=== PATIENT | male | born 1975 | race Caucasian/White ===

== ENCOUNTER → 2023-05-18 | Outpatient (CLI) | payer OTHER, SELFPAY ==
--- NOTE | 2023-05-18 11:03 | MRI_ITS ---
STUDY: MRI BRAIN WITH AND WITHOUT CONTRAST REASON FOR EXAM: Male, 47 years old. SUDDEN HEARING LOSS L EAR TECHNIQUE: Standardized multiplanar fat and water weighted pulse sequences were obtained. IV 17ml Clariscan was administered for the contrast portion of the examination. COMPARISON: None. FINDINGS: Normal size of the ventricles and extra-axial spaces for the patient''s age. There are a limited number of small white matter hyperintensities, distributed throughout the deep white matter tracts of the cerebral hemispheres, consistent with mild chronic white matter ischemic changes versus migraines. There is no evidence for recent intracranial ischemia or other cause of cytotoxic edema on diffusion weighted imaging (DWI). Normal T2* images of the brain without demonstrated susceptibility artifact. There is no demonstrated hemosiderin stain. Normal bilateral basal ganglia. Normal thalami. There is no extra-axial fluid accumulation. Normal flow voids within the major intracranial circulation suggesting patency by spin echo criteria. Normal venous enhancement. There is no enhancing intra-axial or extra-axial abnormality. There is increased CSF within the sella and flattening of the pituitary gland consistent with an empty sellar syndrome . Normal infundibular stalk, hypothalamus, and optic chiasm. Normal tectal plate and pineal gland. Normal midbrain, juan diego and medulla. Normal cerebellum. Normal basal cisterns. Normal bilateral temporal bones. Normal bilateral internal auditory canals. No demonstrated orbital abnormality, within the constraints of a routine brain study. Normal visualized paranasal sinuses. Normal calvarium and skull base. Normal visualized soft tissue structures. Normal visualized upper cervical spine. MRI/Brain W/WO Contrast IMPRESSION: No acute intracranial abnormality. No MR evidence of vestibular schwannoma. No mass or hemorrhage. Mild white matter chronic ischemic change versus migraines. Empty sella. Electronically Signed: Irwin Delgado MD at 14:53 EST ,
== END | disposition home or self-care (01) ==
PROVIDERS: PCP Family Medicine; Referring Provider Otolaryngology; Visit Provider Otolaryngology
DX: H91.22 Sudden idiopathic hearing loss, left ear (principal)
CPT/HCPCS: 70553; A9575

== ENCOUNTER 2023-10-03 12:21 | Emergency (ER) | payer OTHER, SELFPAY ==
[2023-10-03 12:22] VITALS: BP 149/89; PULSE 79; RESP 18; TEMP 36.6; O2SAT 100; BMI 27.6
--- NOTE | 2023-10-03 13:27 | US_ITS ---
STUDY: ABDOMINAL ULTRASOUND - RIGHT UPPER QUADRANT REASON FOR VISIT: Male, 48 years old . The right upper quadrant pain. TECHNIQUE: Ultrasound evaluation of the right upper quadrant was performed with real-time and static hayes-scale imaging. TECHNICAL QUALITY: Adequate. COMPARISON: None. FINDINGS: Liver: The liver measures 15.5 cm. There is normal echogenicity of the liver. The bile ducts are within normal limits. There is hepatic color flow. The direction of portal flow is hepatopetal. There is a 1 cm x 1 cm x 0.7 cm hypoechoic nodule in the right lobe of the liver. Increased peripheral vascularity. Correlation with a CT scan is recommended. Gallbladder: Normal distended gallbladder. The gallbladder wall measures 2.6 mm. There is a negative sonographic Castaneda''s sign. There is a small amount of pericholecystic fluid. There are multiple echogenic structures within the gallbladder, consistent with multiple gallstones. Common Bile Duct (C.B.D.): The common bile duct measures 2.4 mm. Pancreas: Normal size of the head, body and tail of the pancreas. There is increased echogenicity of the pancreas. There is no demonstrated pancreatic mass or cyst. Right Kidney: Normal size of the right kidney. The right kidney measures 10.7 cm x 6.5 cm x 6.3 cm. Normal renal cortex. The right cortex measures 1.5 cm. There is no demonstrated renal mass or cyst. There is no right hydronephrosis. US/Gallbladder IMPRESSION: Multiple gallstones. 1 cm x 1 cm x 0.7 cm hypoechoic nodule in the right lobe of the liver with peripheral vascularity. Correlation with the CT scan of the abdomen recommended. Electronically Signed: Tin Ruvalcaba MD at 15:02 EDT ,
--- NOTE | 2023-10-03 13:29 | ED.VIS.GI ---
HPI <Dr. Lalit Silva DO - Last Filed: 10/03/23 15:53> HPI - GI History of Present Illness Chief Complaint: Abd Pain Informant: patient and spouse/S.O. Narrative Narrative: 48-year-old male presenting to the emergency room with abdominal pain and vomiting. Patient states that last evening he was eating pepperoni pizza. He states that around 0200 hrs. he awoke with abdominal pain and vomiting. He states he had a similar episode about a month ago and saw his primary care doctor was placed on Carafate. He states he has been doing well since then. He states that this morning symptoms have not been abating so he came to the hospital. The patient notes that he did have a slight amount of pain starting to radiate towards his right flank but wonders if that was from retching. No definite fever. He notes a normal bowel movement this morning. He denies any known significant medical problems. PFSH <Dr. Lalit Silva DO - Last Filed: 10/03/23 15:53> [facility] Home Medications ?Medication ?Instructions ?Recorded ?Last Taken ?Type citalopram 20 mg tablet 20 mg PO DAILY 10/03/23 Unknown History fexofenadine 60 mg-pseudoephedrine 1 tab PO Q12H PRN PRN allergy 10/03/23 Unknown History ER 120 mg tablet,ext.release,12 hr symptoms (Kamala-D 12 Hour) hydrocortisone 2.5 % topical cream 1 applic [place] BID HEMORRHOIDS 10/03/23 Unknown History with perineal applicator (Procto-Med HC) pantoprazole 20 mg tablet,delayed 20 mg PO BID #28 tabs 10/03/23 Unknown Rx release (Protonix) sucralfate 1 gram tablet 1 g PO TID 10/03/23 Unknown History Allergy/AdvReac Type Severity Reaction Status Date / Time Penicillins AdvReac Intermediate Vomiting Verified 10/03/23 12:22 Social History Smoking Status: Smoker, status unknown ROS <Dr. Lalit Silva DO - Last Filed: 10/03/23 15:53> ROS ED Constitutional Constitutional ED: Denies chills, fever(s) or weight loss Eyes Eyes: Denies change in vision or diplopia ENT ENT ED: Denies ear pain, rhinorrhea or sore throat Cardiovascular Cardiovascular: Denies chest pain, orthopnea, palpitations or racing heartbeat Respiratory/Chest Respiratory/Chest: Denies cough, dyspnea or orthopnea Gastrointestinal Gastrointestinal: Reports abdominal pain, nausea and vomiting; Denies diarrhea Genitourinary Genitourinary ED: Denies dysuria, hematuria or urinary frequency Musculoskeletal Musculoskeletal: Denies arthralgias, back pain or myalgias Integumentary Denies abscess or rash Neurologic Neurologic: Denies headache(s) or weakness Psychiatric Psychiatric: Denies anxiety, depression, suicidal ideation or suicidal thoughts Endocrine Endocrinology: Denies polydipsia, polyphagia or polyuria Allergic/Immunologic Allergic/Immunologic ED: Denies mouth swelling, tongue swelling or urticaria EXAM <Dr. Lalit Silva, DO - Last Filed: 10/03/23 15:53> Physical Exam Const Vital Signs: 10/03/23 12:22 10/03/23 16:00 10/03/23 16:56 Temperature 98 F 98.5 F Temperature Source Temporal Oral Pulse Rate 79 68 94 Respiratory Rate 18 16 18 Blood Pressure 149/89 H 145/70 H 139/79 H Blood Pressure Mean 109 95 99 Pulse Ox 100 98 98 Oxygen Delivery Method Room Air Room Air Room Air 10/03/23 18:00 Temperature 97 F L Temperature Source Pulse Rate 72 Respiratory Rate 15 Blood Pressure 124/69 H Blood Pressure Mean 87 Pulse Ox 98 Oxygen Delivery Method Positive well nourished and well developed General Appearance ED: well developed and NAD HEENT Reports normocephalic, head/scalp atraumatic and moist mucous membranes Eyes PERRL and EOMs intact bilaterally Neck no lymphadenopathy, supple and no JVD Resp normal respiratory effort and clear to auscultation bilaterally Cardio regular rate, regular rhythm and no murmurs GI GI Narrative: Patient is tender to palpation in the right upper quadrant and slightly in the epigastrium Auscultation: normoactive bowel sounds Palpation: soft and tender epigastric and RUQ Back/Spine no CVA tenderness and normal ROM Extremity normal to inspection General Extremety ED: Negative for edema General Extremity: Negative for edema Neuro oriented x3 and CN's II-XII intact bilaterally Sensorium / Orientation: alert Motor Exam: strength 5/5 throughout Psych mental status grossly normal Mood & Affect: Negative for depressed or tearful Skin no rashes or lesions noted and no wounds <Dr. Maxx Loredo, DO - Last Filed: 10/03/23 22:37> Physical Exam Const Vital Signs: 10/03/23 12:22 10/03/23 16:00 10/03/23 16:56 Temperature 98 F 98.5 F Temperature Source Temporal Oral Pulse Rate 79 68 94 Respiratory Rate 18 16 18 Blood Pressure 149/89 H 145/70 H 139/79 H Blood Pressure Mean 109 95 99 Pulse Ox 100 98 98 Oxygen Delivery Method Room Air Room Air Room Air 10/03/23 18:00 Temperature 97 F L Temperature Source Pulse Rate 72 Respiratory Rate 15 Blood Pressure 124/69 H Blood Pressure Mean 87 Pulse Ox 98 Oxygen Delivery Method MDM <Dr. Lalit Silva, DO - Last Filed: 10/03/23 15:53> MDM MDM Narrative Medical decision making narrative: Differential diagnosis includes but not limited to biliary colic choledocholithiasis pancreatitis gastritis duodenitis colitis esophagitis perforated viscus I performed a bedside ultrasound which demonstrates cholelithiasis. I am not able to measure the CBD at the bedside. He is tender over the gallbladder. White count elevated 14.7 with 87.9 neutrophils. BMP within normal limits except for glucose of 114. Normal LFTs and lipase. Patient had emesis prior to pain medication. Since receiving pain and nausea medication he states the right upper quadrant pain is gone now he has some mild tenderness in his epigastrium. Formal gallbladder ultrasound was obtained which demonstrates cholelithiasis. Gallbladder wall is measured at 2.6 mm. Common bile duct is 2.4 mm. They recorded negative sonographic Castaneda's (this is after pain medication). There was noted by radiology to be a small amount of pericholecystic fluid. Please see radiology read for further details. Patient received IV fluids and a dose of Protonix. Case was discussed with on-call surgeon Dr. Bianchi. We are going to obtain a CT abdomen pelvis based on the findings of the ultrasound. Patient also received a GI cocktail. If he is doing better plan will be to discharge him home have him take his Carafate 4 times a day as well as Protonix twice daily. He will then follow-up with surgery in the office. If there is any concerns we will speak with surgery again. At this time the care of the patient will be checked out to the oncoming physician for final disposition. History & Record Review Discussion w/independent historian: Patient and Significant other Lab Data Attestation: I reviewed the patient's lab results. Labs: Laboratory Results - last 24 hr 10/03/23 14:00 WBC 14.7 H RBC 4.55 L Hgb 14.8 Hct 42.3 MCV 93.0 MCH 32.5 H MCHC 35.0 RDW Std Deviation 43.6 RDW Coeff of Trevon 12.7 Plt Count 302 MPV 9.1 Immature Gran % (Auto) 0.400 Neut % (Auto) 87.9 H Lymph % (Auto) 6.3 L [place] % (Auto) 5.2 Eos % (Auto) 0.0 Baso % (Auto) 0.2 Absolute Neuts (auto) 13.0 H Absolute Lymphs (auto) 0.93 Nucleated RBC % 0 Sodium 140 Potassium 4.0 Chloride 105 Carbon Dioxide 28.0 Anion Gap 7 BUN 9 Creatinine 0.84 Estim Creat Clear Calc 113.46 Est GFR (MDRD) Af Amer 126 Est GFR (MDRD) Non-Af 104 BUN/Creatinine Ratio 10.7 Glucose 114 H Calcium 8.8 Total Bilirubin 0.90 Direct Bilirubin 0.16 AST 20 ALT 25 Alkaline Phosphatase 49 Total Protein 6.8 Albumin 3.8 Globulin 3.0 Lipase 33 Radiography Diagnostic Testing: Clinical Impression(s) from Imaging Studies Gallbladder Ultrasound 10/03/23 13:27 IMPRESSION: Multiple gallstones. 1 cm x 1 cm x 0.7 cm hypoechoic nodule in the right lobe of the liver with peripheral vascularity. Correlation with the CT scan of the abdomen recommended. Electronically Signed: Tin Ruvalcaba MD at 15:02 EDT , Abdomen/Pelvis CT 10/03/23 15:42 IMPRESSION: Normal enhanced CT of the abdomen and pelvis. No CT evidence of hepatic lesion as suggested on ultrasound. Electronically Signed: Marco A Kimbrough MD at 16:53 EDT , Management Discussion w/another healthcare provider: Deputy Director Of Finance (Dr. Bianchi) <Dr. Maxx Loredo, DO - Last Filed: 10/03/23 22:37> [facility] Lab Data Labs: Laboratory Results - last 24 hr 10/03/23 14:00 WBC 14.7 H RBC 4.55 L Hgb 14.8 Hct 42.3 MCV 93.0 MCH 32.5 H MCHC 35.0 RDW Std Deviation 43.6 RDW Coeff of Trevon 12.7 Plt Count 302 MPV 9.1 Immature Gran % (Auto) 0.400 Neut % (Auto) 87.9 H Lymph % (Auto) 6.3 L [place] % (Auto) 5.2 Eos % (Auto) 0.0 Baso % (Auto) 0.2 Absolute Neuts (auto) 13.0 H Absolute Lymphs (auto) 0.93 Nucleated RBC % 0 Sodium 140 Potassium 4.0 Chloride 105 Carbon Dioxide 28.0 Anion Gap 7 BUN 9 Creatinine 0.84 Estim Creat Clear Calc 113.46 Est GFR (MDRD) Af Amer 126 Est GFR (MDRD) Non-Af 104 BUN/Creatinine Ratio 10.7 Glucose 114 H Calcium 8.8 Total Bilirubin 0.90 Direct Bilirubin 0.16 AST 20 ALT 25 Alkaline Phosphatase 49 Total Protein 6.8 Albumin 3.8 Globulin 3.0 Lipase 33 Radiography Diagnostic Testing: Clinical Impression(s) from Imaging Studies Gallbladder Ultrasound 10/03/23 13:27 IMPRESSION: Multiple gallstones. 1 cm x 1 cm x 0.7 cm hypoechoic nodule in the right lobe of the liver with peripheral vascularity. Correlation with the CT scan of the abdomen recommended. Electronically Signed: Tin Ruvalcaba MD at 15:02 EDT , Abdomen/Pelvis CT 10/03/23 15:42 IMPRESSION: Normal enhanced CT of the abdomen and pelvis. No CT evidence of hepatic lesion as suggested on ultrasound. Electronically Signed: Marco A Kimbrough MD at 16:53 EDT , Treatment and Re-Evaluation :: Patient was turned over to me by Dr. Silva @1600 Brief history: 48-year-old male presents with epigastric abdominal pain Physical exam: Epigastric TTP, no guarding, no peritoneal signs. No jaundice. Symmetric pulses. No pulsatile abdominal masses, auscultated bruits. Labs and images reviewed (if obtained): CBC with leukocytosis suggestive of systemic inflammation, no anemia, no thrombocytopenia noted CMP without evidence of acute kidney injury, significant electrolyte abnormality, anion gap, no evidence hepatobiliary pathology. Lipase is wnl indicating no pancreatic inflammation. Right upper quadrant ultrasound shows some gallbladder inflammation, multiple gallstones, hypoechoic area in the liver CT scan showed no such liver abnormality, no evidence of surgical pathology in the abdomen Repeat abdominal exam was benign. Gave IV Pepcid for additional relief. Discussed the case with the general surgeon on-call Dr. Bianchi who reviewed the patient's labs, images. She recommended no acute surgical invention. She further recommended close outpatient follow-up and to begin a PPI. PPI was prescribed by Dr. Silva. Patient is appropriate discharge. Strict return precautions were discussed. MDM/plan: Discharge with close general surgery follow-up Discharge Plan Triage Chief Complaint: Abd Pain ED Provider: Maxx Loredo Dx/Rx/DC Orders Clinical Impression: Abdominal pain, acute, Cholelithiasis, GERD (gastroesophageal reflux disease) Instructions: Gallstones Dc, ED GERD (Adult) Prescriptions: New pantoprazole [Protonix] 20 mg tablet,delayed release (DR/EC) 20 mg PO BID Qty: 28 0RF No Action sucralfate 1 gram tablet 1 g PO TID citalopram 20 mg tablet 20 mg PO DAILY fexofenadine-pseudoephedrine [Kamala-D 12 Hour] 60-120 mg tablet extended release 12 hr 1 tab PO Q12H PRN PRN (Reason: allergy symptoms) hydrocortisone [Procto-Med HC] 2.5 % cream with perineal applicator 1 applic [place] BID Primary Care Provider: Nicolás Flowers Referrals: Kesha Bianchi MD [Med Staff - Active Staff] - As soon as possible (for general surgical evaluation) Nicolás Flowers MD [Primary Care Provider] - Print Language: Turkish Disposition Disposition: Home, Self Care Discharge Date/Time: 10/03/23 18:01
[2023-10-03] MEDS: 0.9% Normal Saline (1000mL) 1,000 ML 999 ML IV (14:01)
[2023-10-03] MEDS: HYDROmorphone 1 MG/ML Syringe IV (14:01)
[2023-10-03] MEDS: Ondansetron 4 MG/2 ML Vial IV (14:01)
[2023-10-03 14:17] LABS: Absolute Lymphocyte Count 0.93 X10^3/uL (0.83-4.51); Basophil# 0.03 X10^3/uL; Basophil% 0.2 % (0-1); Hematocrit 42.3 % (40-54); Hemoglobin 14.8 g/dL (13.0-16.5); Lymphocyte # 0.93 X10^3/ul (0.83-4.51); Lymphocyte % 6.3 % (19-41); Mean Corpuscular Hgb 32.5 pg (27.0-32.0); Mean Platelet Vol. 9.1 fl (6.2-12.0); Monocyte# 0.77 X10^3/uL; Monocyte% 5.2 % (0-10); NRBC Flagged by Analyzer 0 % (0-5); Neutrophil # 12.95 X10^3/uL (2.7-7.7); Neutrophil % 87.9 % (47-70); Platelet Count 302 K/mm3 (150-450); RBC Distribution Width CV 12.7 % (11.6-14.6); RBC Distribution Width SD 43.6 fl (35.1-43.9); Red Blood Count 4.55 M/mm3 (4.6-6.2); White Blood Count 14.7 K/mm3 (4.4-11.0)
[2023-10-03 14:32] LABS: AST(SGOT) 20 U/L (15-37); Alanine Aminotransfer ALT/SGPT 25 U/L (16-61); Albumin, Serum 3.8 g/dL (3.2-5.0); Alkaline Phosphatase 49 U/L (45-117); Anion Gap 7 (5-15); BUN 9 mg/dL (7-18); BUN/Creat Ratio 10.7 RATIO (10-20); Bilirubin, Direct 0.16 mg/dL (0.00-0.30); Calcium,Total 8.8 mg/dL (8.5-10.1); Chloride 105 mmol/L (98-107); Creatinine, Serum 0.84 mg/dL (0.70-1.30); EST Glomerular Filtration Rate 104 mL/min (>60); Est Glom Filt Rate - Afr Amer 126 mL/min (>60); Estimated Creatinine Clearance 113.46 ml/min; Glucose 114 mg/dL (74-106); Lipase 33 U/L (13-75); Protein, Total 6.8 g/dL (6.4-8.2); Sodium Level 140 mmol/L (136-145)
[2023-10-03] MEDS: 0.9% Normal Saline (1000mL) 1,000 ML 125 ML IV (15:20)
--- NOTE | 2023-10-03 15:42 | CT_ITS ---
STUDY: CT ABDOMEN AND PELVIS WITH CONTRAST REASON FOR EXAM: Male, 48 years old. abdominal pain. abnormal liver lesion RADIATION DOSAGE (If Supplied By Facility): CTDIvol = ( 12.28 ) mGy, DLP = ( 835.06 ) mGycm TECHNIQUE: Transaxial images were obtained from the dome of the diaphragm to the symphysis pubis without oral contrast. IV 100mL Isovue-300 was administered. Sagittal and coronal images were reconstructed. Individualized dose optimization techniques were used for this CT. COMPARISON: Ultrasound earlier today FINDINGS: The visualized lung bases are unremarkable. The visualized portions of the heart are within normal limits. Normal liver. The described lesion in the right lobe of the liver is not visualized. Normal gallbladder and extrahepatic biliary system. Normal spleen. Normal pancreas. Normal bilateral adrenal glands. Normal right kidney. Normal left kidney. There is a small hiatal hernia. Normal small intestine. Normal colon. The appendix is visualized and appears normal. Normal abdominal aorta. Normal inferior vena cava. Normal retroperitoneum. Normal urinary bladder. Normal abdominal wall. Normal osseous structures. CT/Abdomen/Pelvis W IV Cont ONLY IMPRESSION: Normal enhanced CT of the abdomen and pelvis. No CT evidence of hepatic lesion as suggested on ultrasound. Electronically Signed: Marco A Kimbrough MD at 16:53 EDT ,
[2023-10-03] MEDS: Pantoprazole Sodium 40 MG in 0.9% Normal Saline (100mL MB+) 100 ML 330 MG IV (15:44)
[2023-10-03] MEDS: Mag /Aluminum/Simeth WCH UDC 30 ML ORAL.SUSP PO (15:58)
[2023-10-03] MEDS: Lidocaine 2% Viscous15 ML UDC 15 ML PO (15:58)
[2023-10-03 16:00] VITALS: BP 145/70; PULSE 68; RESP 16; O2SAT 98
[2023-10-03 16:56] VITALS: BP 139/79; PULSE 94; RESP 18; TEMP 36.9; O2SAT 98
[2023-10-03] MEDS: Famotidine 200 MG/20 ML MDV 20 MG in 0.9% Normal Saline (Pres. free 8 ML 300 MG IV (17:57)
[2023-10-03 18:00] VITALS: BP 124/69; PULSE 72; RESP 15; TEMP 36.1; O2SAT 98
== END 2023-10-03 18:01 | disposition home or self-care (01) ==
PROVIDERS: Emergency Medicine; Emergency Provider Emergency Medicine; PCP Family Medicine; Visit Provider Emergency Medicine
DX: R10.9 Unspecified abdominal pain (principal); K21.9 Gastro-esophageal reflux disease without esophagitis; F17.200 Nicotine dependence, unspecified, uncomplicated; K80.20 Calculus of gallbladder without cholecystitis without obstruction
CPT/HCPCS: 74177; 76705; 80048; 80076; 83690; 85025; 99283; J7030; Q9967; A4216; J2405; J3490

== ENCOUNTER 2023-10-05 05:54 | Inpatient (IN) | payer OTHER, SELFPAY ==
[2023-10-05] VITALS (9 sets, daily range): BP systolic 128–159; BP diastolic 74–91; PULSE 60–117; RESP 16–19; TEMP 36.4–37.2; O2SAT 93–98; BMI 27.6; BMI 27.1
--- NOTE | 2023-10-05 06:13 | ED.VIS.GI ---
HPI HPI - GI History of Present Illness Chief Complaint: Abd Pain Informant: patient and spouse/S.O. Narrative Narrative: Patient presenting with worsening abdominal pain. He was seen here 2 days ago for the same thing, had a CT and ultrasound told he had gallstones and is supposed to follow-up with surgery as an outpatient. The pain has been progressively worsening for the past 2 days and has not gone away although it has been colicky and sometimes does improve on its own. It also seems to be on the left side now in addition to the right upper quadrant where it was before, it radiates down the left side and up the left side at times, sometimes mean in his chest, when he tries to burp the pain is worse. He has had nausea but no vomiting. No fevers or chills. No jaundice or confusion. No pain in his back or shoulders with this. He has eaten very little in the past 2 days and has had no bowel movements since. No issues urinating. He had an episode about a month ago, his doctor put him on Carafate, he was started on pantoprazole a couple days ago, it did not seem to help and then they read that abdominal pain is a possible side effect so he stopped taking it. [facility] Home Medications ?Medication ?Instructions ?Recorded ?Last Taken ?Type citalopram 20 mg tablet 20 mg PO DAILY 10/03/23 Unknown History fexofenadine 60 mg-pseudoephedrine 1 tab PO Q12H PRN PRN allergy 10/03/23 Unknown History ER 120 mg tablet,ext.release,12 hr symptoms (Kamala-D 12 Hour) hydrocortisone 2.5 % topical cream 1 applic [place] BID HEMORRHOIDS 10/03/23 Unknown History with perineal applicator (Procto-Med ) pantoprazole 20 mg tablet,delayed 20 mg PO BID #28 tabs 10/03/23 Unknown Rx release (Protonix) sucralfate 1 gram tablet 1 g PO Q6H 10/03/23 Unknown History Allergy/AdvReac Type Severity Reaction Status Date / Time Penicillins AdvReac Intermediate Vomiting Verified 10/05/23 05:55 Surgical History no surgical history no surgical history Social History Smoking Status: Smoker, status unknown ROS ROS ED Constitutional Constitutional ED: Denies chills or fever(s) Eyes Eyes: Denies change in vision or diplopia ENT ENT ED: Denies rhinorrhea or sore throat Cardiovascular Cardiovascular: Denies chest pain or palpitations Respiratory/Chest Respiratory/Chest: Denies cough or dyspnea Gastrointestinal Gastrointestinal: Reports abdominal pain and nausea; Denies diarrhea or vomiting Genitourinary Genitourinary ED: Denies dysuria or hematuria Musculoskeletal Musculoskeletal: Denies back pain or neck pain Integumentary Denies abscess or rash Neurologic Neurologic: Denies headache(s), paresthesias or weakness Psychiatric Psychiatric: Denies suicidal thoughts EXAM Physical Exam Const Vital Signs: 10/05/23 05:54 10/05/23 07:54 10/05/23 07:57 Temperature 97.5 F L 97.8 F Temperature Source Temporal Pulse Rate 94 60 61 Respiratory Rate 16 17 17 Blood Pressure 159/91 H 129/74 H 129/74 H Blood Pressure Mean 113 92 92 Pulse Ox 98 93 94 Oxygen Delivery Method Room Air Room Air Positive well nourished and well developed General Appearance ED: well developed and NAD HEENT Reports moist mucous membranes normocephalic and atraumatic Eyes PERRL and EOMs intact bilaterally Neck full ROM and supple Resp normal respiratory effort and clear to auscultation bilaterally Cardio regular rate, regular rhythm and no murmurs GI non-distended GI Narrative: Very tender right upper quadrant positive Castaneda. Less tender throughout the left abdomen. Auscultation: normoactive bowel sounds Palpation: soft Back/Spine no CVA tenderness General Back: other FROM Extremity normal to inspection General Extremety ED: Negative for edema, pulses abnormal or tenderness General Extremity: Negative for edema or pulses abnormal Neuro oriented x3, CN's II-XII intact bilaterally and no sensory deficits noted Sensorium / Orientation: awake and alert Motor Exam: strength 5/5 throughout Psych thought process normal Skin no rashes or lesions noted and no wounds MDM MDM MDM Narrative Medical decision making narrative: My concern is that this patient is developing acute cholecystitis. He presents during retrimmer and ultrasound is not available at this time, so I am repeating his labs and giving him treatment to get his symptoms under control. I reviewed his ED visit from 2 days ago, he had a CT scan that was unremarkable and an ultrasound that showed some pericholecystic fluid and cholelithiasis. I reviewed his labs; with worsening leukocytosis and development of hyperbilirubinemia, in context I think this is consistent with acute cholecystitis, plus possible choledocholithiasis. Antibiotics to be given and discussed with Dr. Jarrod victor for further inpatient management. He advised first repeating right upper quadrant ultrasound to assess status of possible choledocholithiasis to help determine next management steps. This was obtained. Checked out to AM ED physician at shift change for results and arrangement for admission. History & Record Review Additional record(s) reviewed:: Prior ED visit Lab Data Attestation: I reviewed the patient's lab results. Labs: Laboratory Results - last 24 hr 10/05/23 06:02 WBC 16.6 H RBC 4.54 L Hgb 14.5 Hct 41.9 MCV 92.3 MCH 31.9 MCHC 34.6 RDW Std Deviation 42.2 RDW Coeff of Trevon 12.5 Plt Count 291 MPV 9.1 Immature Gran % (Auto) 0.400 Neut % (Auto) 81.2 H Lymph % (Auto) 6.9 L [place] % (Auto) 10.9 H Eos % (Auto) 0.4 Baso % (Auto) 0.2 Absolute Neuts (auto) 13.5 H Absolute Lymphs (auto) 1.14 Nucleated RBC % 0 Diff Path Review May foll Sodium 135 L Potassium 3.3 L Chloride 101 Carbon Dioxide 24.0 Anion Gap 10 BUN 8 Creatinine 0.86 Estim Creat Clear Calc 110.82 Est GFR (MDRD) Af Amer 124 Est GFR (MDRD) Non-Af 102 BUN/Creatinine Ratio 9.4 L Glucose 118 H Calcium 9.1 Total Bilirubin 2.50 H AST 36 ALT 40 Alkaline Phosphatase 57 Total Protein 7.0 Albumin 3.7 Globulin 3.3 Albumin/Globulin Ratio 1.1 Lipase 31 Management Discussion w/another healthcare provider: Hospitalist and Supervisor [employer] (valente Garay) Discharge Plan Dx/Rx/DC Orders Clinical Impression: Acute calculous cholecystitis, Hyperbilirubinemia Disposition Disposition: [facility]
[2023-10-05] MEDS: Ketorolac 30 MG/ML Syringe IV (06:23)
[2023-10-05 06:24] LABS: Absolute Lymphocyte Count 1.14 X10^3/uL (0.83-4.51); Absolute Neutrophil Count 13.5 X10^3/uL (2.0-7.7); Basophil# 0.04 X10^3/uL; Basophil% 0.2 % (0-1); Eosinophil# 0.07 X10^3/uL; Eosinophils% 0.4 % (0-5); Hematocrit 41.9 % (40-54); Hemoglobin 14.5 g/dL (13.0-16.5); Lymphocyte # 1.14 X10^3/ul (0.83-4.51); Lymphocyte % 6.9 % (19-41); Mean Corp Hgb Conc 34.6 g/dL (32-36); Mean Corpuscular Hgb 31.9 pg (27.0-32.0); Mean Corpuscular Volume 92.3 fL (80-94); Mean Platelet Vol. 9.1 fl (6.2-12.0); Monocyte% 10.9 % (0-10); NRBC Flagged by Analyzer 0 % (0-5); Neutrophil # 13.46 X10^3/uL (2.7-7.7); Neutrophil % 81.2 % (47-70); POSITIVE DIFFERENTIAL YES; Platelet Count 291 K/mm3 (150-450); RBC Distribution Width CV 12.5 % (11.6-14.6); RBC Distribution Width SD 42.2 fl (35.1-43.9); Red Blood Count 4.54 M/mm3 (4.6-6.2); White Blood Count 16.6 K/mm3 (4.4-11.0)
[2023-10-05] MEDS: 0.9% Normal Saline (1000mL) 1,000 ML 125 ML IV ×3 (06:24→22:28)
[2023-10-05] MEDS: Ondansetron 4 MG/2 ML Vial IV ×2 (06:24→13:56)
[2023-10-05] MEDS: Morphine 4 MG/ML Syringe IV ×2 (06:24→13:56)
[2023-10-05 06:36] LABS: Differential Indicated SCAN CRITERIA MET
[2023-10-05 06:41] LABS: ALB/GLOB Ratio 1.1 RATIO (0.9-2.4); AST(SGOT) 36 U/L (15-37); Alanine Aminotransfer ALT/SGPT 40 U/L (16-61); Albumin, Serum 3.7 g/dL (3.2-5.0); Alkaline Phosphatase 57 U/L (45-117); Anion Gap 10 (5-15); BUN 8 mg/dL (7-18); BUN/Creat Ratio 9.4 RATIO (10-20); Calcium,Total 9.1 mg/dL (8.5-10.1); Chloride 101 mmol/L (98-107); Creatinine, Serum 0.86 mg/dL (0.70-1.30); EST Glomerular Filtration Rate 102 mL/min (>60); Est Glom Filt Rate - Afr Amer 124 mL/min (>60); Estimated Creatinine Clearance 110.82 ml/min; Globulin 3.3 g/dL (2.2-4.2); Glucose 118 mg/dL (74-106); Lipase 31 U/L (13-75); Potassium 3.3 mmol/L (3.5-5.1); Sodium Level 135 mmol/L (136-145)
[2023-10-05] MEDS: Cefepime HCl 2 GM in 0.9% Normal Saline (100mL MB+) 100 ML IV ×2 (07:16→22:29)
--- NOTE | 2023-10-05 07:58 | US_ITS ---
STUDY: ABDOMINAL ULTRASOUND - RIGHT UPPER QUADRANT REASON FOR VISIT: Male, 48 years old inc pain, elev bili, eval for choledocholithiasis TECHNIQUE: Ultrasound evaluation of the right upper quadrant was performed with real-time and static hayes-scale imaging. TECHNICAL QUALITY: Adequate. COMPARISON: Comparison is made with prior study dated October 03, 2023. FINDINGS: Liver: The liver measures 16.9 cm. There is normal echogenicity of the liver. The bile ducts are within normal limits. There is hepatic color flow. The direction of portal flow is hepatopetal. There is a 1.1 cm x 1.2 cm x 0.7 cm hypoechoic nodule with the central increased echotexture with increased vascularity in the right lobe. There is also evidence of a 1.5 cm x 1.4 cm x 1.2 cm hyperechoic nodule in the posterior aspect of the right lobe of the liver. This may represent a hemangioma. Gallbladder: Normal distended gallbladder. The gallbladder wall is thickened and measures 4.5 mm. There is a positive sonographic Castaneda''s sign. There is no pericholecystic fluid. There are multiple echogenic structures within the gallbladder, consistent with multiple gallstones. Sludge is seen within the gallbladder lumen. Proximal 4 mm x 3 mm stone in the cystic duct. Common Bile Duct (C.B.D.): The common bile duct measures 2.6 mm. Pancreas: Normal size of the head, body and tail of the pancreas. There is increased echogenicity of the pancreas. There is no demonstrated pancreatic mass or cyst. Right Kidney: Normal size of the right kidney. The right kidney measures 11.5 cm x 6.4 cm x 5.9 cm. Normal renal cortex. The right cortex measures 1.3 cm. There is no demonstrated renal mass or cyst. There is no right hydronephrosis. US/Gallbladder IMPRESSION: Multiple gallstones. Thickened gallbladder wall. Questionable calculus in the cystic duct. Findings suggestive of a hemangioma in the posterior right lobe of the liver. Persistent 1.1 cm x 1.2 cm x 0.7 cm hypoechoic nodule with central increased echotexture with vascularity in the right. Electronically Signed: Tin Ruvalcaba MD at 9:15 EDT ,
[2023-10-05 12:58] LABS: Pathologist Review Reviewed
--- NOTE | 2023-10-05 14:12 | HP.PCM_ITS ---
[facility] - General General Date of Admission: 10/05/23 Chief Complaint: abdominal pain [facility] Narrative CHELLE TORRES, is a 48 M who presents to [facility] ER with a complaint of intractable abdominal pain. He shares that he woke at approximately 2 AM on 10/03/2023 with severe pain of his upper abdomen and that favored his right side. This was associated with some nausea and vomiting. When it did not go away he presented to the emergency department where he underwent laboratory testing and both right upper quadrant ultrasound as well as CT imaging. He was ultimately dismissed on a regimen of twice daily Protonix as well as Carafate and direction to follow-up with surgery as an outpatient. He shares that upon his dismissal his pain persisted all the following day and became more diffuse and its affect causing severe stomach cramping. With this persistence he decided to represent for evaluation this morning approximately 5 AM. Repeat laboratory testing showed a further increase in his previously identified leukocytosis. I was contacted and no suspicion for cholecystitis and requested repeat ultrasound imaging. This was performed and showed a thickened gallbladder wall at 4.5 mm as well as a possible stone in the cystic duct. Notably the common bile duct measured 2.6 mm to the advanced analytics associate. Beyond the above episodes of abdominal discomfort, Mr. Torres and his share of the prior isolated episode of abdominal pain approximately 1 month ago. He states that this episode was self-limited after a single episode of vomiting and he awoke and the next morning without further signs of discomfort. He did present to his PCP, Dr. Flowers, [facility] who prescribed him Carafate and Pepcid. Patient has no significant past medical history and no prior surgeries. [facility] Medical History (Updated 10/05/23 @ 14:47 by Patti Yates) Former smoker Migraines Home Medications ?Medication ?Instructions ?Recorded ?Last Taken ?Type citalopram 20 mg tablet 20 mg PO DAILY 10/03/23 Unknown History fexofenadine 60 mg-pseudoephedrine 1 tab PO Q12H PRN allergy symptoms 10/03/23 Unknown History ER 120 mg tablet,ext.release,12 hr (Kamala-D 12 Hour) hydrocortisone 2.5 % topical cream 1 applic [place] BID HEMORRHOIDS 10/03/23 Unknown History with perineal applicator (Procto-Med ) pantoprazole 20 mg tablet,delayed 20 mg PO BID #28 tabs 10/03/23 10/04/23 Rx release (Protonix) sucralfate 1 gram tablet 1 g PO Q6H 10/03/23 Unknown History famotidine 20 mg tablet (Acid 20 mg PO DAILY 10/05/23 Unknown History Controller) ketotifen fumarate 0.025 % (0.035 1 drp EACH EYE BID PRN allergy 10/05/23 Unknown History %) eye drops (Alaway) symptoms loratadine 10 mg tablet (Allergy 10 mg PO DAILY 10/05/23 Unknown History Relief (loratadine)) sumatriptan succinate 50 mg tablet 50 mg PO DAILY PRN migraine 10/05/23 Unknown History headache Allergy/AdvReac Type Severity Reaction Status Date / Time Penicillins AdvReac Intermediate Vomiting Verified 10/05/23 05:55 Surgical History no surgical history Social History Smoking Status: Former smoker ROS Constitutional Constitutional: Denies change in weight Gastrointestinal Gastrointestinal: Reports abdominal pain, constipation, nausea and vomiting Vital Signs Vital Signs Vital Signs: 10/05/23 05:54 10/05/23 07:54 10/05/23 07:57 Temperature 97.5 F L 97.8 F Temperature Source Temporal Pulse Rate 94 60 61 Respiratory Rate 16 17 17 Blood Pressure 159/91 H 129/74 H 129/74 H Blood Pressure Mean 113 92 92 Blood Pressure Source Blood Pressure Position Blood Pressure Location Pulse Ox 98 93 94 Oxygen Delivery Method Room Air Room Air 10/05/23 09:00 10/05/23 09:44 10/05/23 11:00 Temperature 98 F Temperature Source Temporal Pulse Rate 68 88 83 Respiratory Rate 18 19 H 19 H Blood Pressure 149/89 H 144/78 H 148/82 H Blood Pressure Mean 109 100 104 Blood Pressure Source Monitor Blood Pressure Position Supine Blood Pressure Location Right Arm Pulse Ox 97 96 95 Oxygen Delivery Method Room Air Room Air Room Air 10/05/23 13:00 Temperature Temperature Source Pulse Rate 117 H Respiratory Rate 18 Blood Pressure 143/78 H Blood Pressure Mean 99 Blood Pressure Source Blood Pressure Position Blood Pressure Location Pulse Ox 96 Oxygen Delivery Method Room Air Weight Weight: 192 lb 10.944 oz Body Mass Index (BMI) 27.6 Physical Exam Const alert, oriented x3, no apparent distress and well nourished General Appearance: cooperative GI GI Narrative: No scars, hirsute, no visible herniations. Soft, tender to palpation across epigastrium and right upper quadrant. Technically negative Castaneda sign. Results Lab / Micro Data 10/05/23 06:02 10/05/23 06:02 Labs: Laboratory Results - last 24 hr 10/05/23 06:02: WBC 16.6 H, RBC 4.54 L, Hgb 14.5, Hct 41.9, MCV 92.3, MCH 31.9, MCHC 34.6, RDW Std Deviation 42.2, RDW Coeff of Trevon 12.5, Plt Count 291, MPV 9.1, Immature Gran % (Auto) 0.400, Neut % (Auto) 81.2 H, Lymph % (Auto) 6.9 L, M quiana % (Auto) 10.9 H, Eos % (Auto) 0.4, Baso % (Auto) 0.2, Absolute Neuts (auto) 13.5 H, Absolute Lymphs (auto) 1.14, Nucleated RBC % 0, Diff Path Review Reviewed, Sodium 135 L, Potassium 3.3 L, Chloride 101, Carbon Dioxide 24.0, Anion Gap 10, BUN 8, Creatinine 0.86, Estim Creat Clear Calc 110.82, Est GFR (MDRD) Af Amer 124, Est GFR (MDRD) Non-Af 102, BUN/Creatinine Ratio 9.4 L, G lucose 118 H, Calcium 9.1, Total Bilirubin 2.50 H, AST 36, ALT 40, Alkaline Phosphatase 57, Total Protein 7.0, Albumin 3.7, Globulin 3.3, Albumin/Globulin Ratio 1.1, Lipase 31 Imaging Radiology Impression Gallbladder Ultrasound 10/05/23 07:58 IMPRESSION: Multiple gallstones. Thickened gallbladder wall. Questionable calculus in the cystic duct. Findings suggestive of a hemangioma in the posterior right lobe of the liver. Persistent 1.1 cm x 1.2 cm x 0.7 cm hypoechoic nodule with central increased echotexture with vascularity in the right. Electronically Signed: Tin Ruvalcaba MD at 9:15 EDT , Assessment & Plan Assessment/Plan (1) Acute calculous cholecystitis: PLAN: Patient is a 48-year-old male with approximately 48-hour history of acute onset upper abdominal pain with associated nausea and vomiting. Patient with mild leukocytosis 2 days ago has increased on today's labs. Further, today's labs demonstrate some hyperbilirubinemia discussed later in this note. Both patient's history and exam are consistent with a diagnosis of acute calculus cholecystitis. Based on radiology's interpretation the ultrasound is showing possible stone in the cystic duct a obstruction of the outflow of the gallbladder may be to blame for this condition. With patient's presentation and otherwise minimal past medical history of find him as an acceptable candidate for an operation of recommended proceeding with laparoscopic cholecystectomy with intraoperative cholangiography. I described the procedure in detail as well as postprocedure recovery. I specifically addressed the use of intraoperative cholangiography as a means of confirming the anatomy and confirming patency of the outflow tracts to the small bowel. Patient and his were given opportunity ask questions and all were answered to their satisfaction. Plan to admit to inpatient status and proceed with surgery in the a.m. Patient has been dosed with cefepime by emergency medicine given his reported allergies to penicillins. Will plan to continue this as an inpatient. Patient should be held n.p.o. past midnight. A.m. labs are anticipated. Will look to have consents obtained for laparoscopic cholecystectomy with intraoperative cholangiography. Kameron Garay MD General Surgery Endocrine Surgery Pager: [facility] [address] [place] [address], [address] [place] [address] Office: [phone] (2) Hyperbilirubinemia: PLAN: Hyperbilirubinemia noted with patient's labs, however, his LFTs and alkaline phosphatase are not elevated. Therefore this may be simply an acute phase reactant. Will plan to repeat a CMP in the a.m. as well as further investigate with cholangiography up tomorrow surgery. Charges/Coding Visit Charges Inpatient E&M: 63543 Init Hosp L2
--- NOTE | 2023-10-05 14:13 | NURSING ---
MED SURG BORTZ CHOLECYSTITIS
[2023-10-05] MEDS: Acetaminophen 500 MG Tablet PO ×2 (17:40→20:30)
--- NOTE | 2023-10-05 17:49 | EKG12_ITS ---
Test Reason : PRE OP Blood Pressure : / mmHG Vent. Rate : 092 BPM Atrial Rate : 092 BPM P-R Int : 146 ms QRS Dur : 096 ms QT Int : 348 ms P-R-T Axes : 044 -26 026 degrees QTc Int : 430 ms Normal sinus rhythm Incomplete right bundle branch block Nonspecific T wave abnormality Abnormal ECG No previous ECGs available Confirmed by OTTO RAMIREZ, TRENTON ([id number]), material expeditor MASOUD SHEA ([id number]) on 10/08/2023 1:14:15 PM Referred By: MAU Confirmed By:TRENTON MENJIVAR MD
[2023-10-06] VITALS (12 sets, daily range): BP systolic 111–156; BP diastolic 56–87; PULSE 82–109; RESP 14–20; TEMP 2.7–37.8; O2SAT 93–100
[2023-10-06] MEDS: Acetaminophen 500 MG Tablet PO ×2 (03:46→21:52)
[2023-10-06] MEDS: 0.9% Normal Saline (1000mL) 1,000 ML 125 ML IV ×3 (06:18→21:39)
[2023-10-06 06:26] LABS: Absolute Lymphocyte Count 1.25 X10^3/uL (0.83-4.51); Absolute Neutrophil Count 13.4 X10^3/uL (2.0-7.7); Basophil# 0.06 X10^3/uL; Basophil% 0.4 % (0-1); Eosinophils% 1.2 % (0-5); Hematocrit 38.3 % (40-54); Hemoglobin 13.3 g/dL (13.0-16.5); Lymphocyte # 1.25 X10^3/ul (0.83-4.51); Lymphocyte % 7.6 % (19-41); Mean Corp Hgb Conc 34.7 g/dL (32-36); Mean Corpuscular Hgb 32.7 pg (27.0-32.0); Mean Corpuscular Volume 94.1 fL (80-94); Mean Platelet Vol. 9.3 fl (6.2-12.0); Monocyte# 1.47 X10^3/uL; Monocyte% 8.9 % (0-10); NRBC Flagged by Analyzer 0 % (0-5); Neutrophil # 13.41 X10^3/uL (2.7-7.7); Neutrophil % 81.4 % (47-70); Platelet Count 264 K/mm3 (150-450); RBC Distribution Width CV 12.8 % (11.6-14.6); RBC Distribution Width SD 44.4 fl (35.1-43.9); Red Blood Count 4.07 M/mm3 (4.6-6.2); White Blood Count 16.5 K/mm3 (4.4-11.0)
[2023-10-06 07:01] LABS: ALB/GLOB Ratio 0.8 RATIO (0.9-2.4); AST(SGOT) 39 U/L (15-37); Alanine Aminotransfer ALT/SGPT 43 U/L (16-61); Alkaline Phosphatase 54 U/L (45-117); Anion Gap 7 (5-15); BUN 8 mg/dL (7-18); Calcium,Total 8.3 mg/dL (8.5-10.1); Chloride 109 mmol/L (98-107); EST Glomerular Filtration Rate 111 mL/min (>60); Est Glom Filt Rate - Afr Amer 134 mL/min (>60); Estimated Creatinine Clearance 119.13 ml/min; Globulin 3.6 g/dL (2.2-4.2); Glucose 107 mg/dL (74-106); Potassium 3.2 mmol/L (3.5-5.1); Protein, Total 6.6 g/dL (6.4-8.2); Sodium Level 140 mmol/L (136-145)
--- NOTE | 2023-10-06 07:33 | PCM.PRE.AN2 ---
ASA Classification* ASA Classification ASA Classification: 2 and E Assessment & Plan Anesthesia* Anesthesia Assessment Anesthesia Assessment: Discussed sedation and/or anesthesia options, risks, benefits, and alternatives with patient/parents/legal guardian/POA. Questions invited. The patient/parents/legal guardian/POA seems to understand and agrees to proceed with anesthesia plan. Reviewed the physical assessment, medical history, allergy history and patient home medications list prior to surgery/procedure/anesthetic and documented any changes. Performed airway and anesthesia risk assessments. Anesthesia Type Anesthesia Type: General (see written pre anesthesia record for full assessment) Anesthesia Focused Assessment* Temperature: 99.4 F Pulse Rate: 99 Blood Pressure: 154/87 Respiratory Rate: 16 Pulse Ox: 96 Airway Assessment Mouth opens: >3 cm Mallampati Score: II Focused Labs Anesthesia Preop lab: CBC WBC 16.5 K/mm3 (4.4-11.0) H 10/06/23 06:18 RBC 4.07 M/mm3 (4.6-6.2) L 10/06/23 06:18 Hgb 13.3 g/dL (13.0-16.5) 10/06/23 06:18 Hct 38.3 % (40-54) L 10/06/23 06:18 Plt Count 264 K/mm3 (150-450) 10/06/23 06:18 CHEMISTRY Potassium 3.2 mmol/L (3.5-5.1) L 10/06/23 06:18 Sodium 140 mmol/L (136-145) 10/06/23 06:18 BUN 8 mg/dL (7-18) 10/06/23 06:18 Creatinine 0.80 mg/dL (0.70-1.30) 10/06/23 06:18 Glucose 107 mg/dL (74-106) H 10/06/23 06:18 COAG Pre-Assessment Diagnosis/Proposed Procedure Planned Operative Procedure(s): lap castillo Anesthesia History 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 When Was Last Pacemaker Check QUESTION #4 FULL TEXT: You/Your Family Experience fever (hyperthermia) with Anesthesia Last Oral Intake Last Oral intake: Last Oral Intake NPO since 00:00 10/05/23 20:03 Meds taken in AM with sips of water? Meds patient instructed to take am of surgery PONV PONV - it telecom technician: PONV - it telecom technician Female HX of Motion Sickness HX of N/V After Surgery Non-Smoker Duration of Surgery greater than 60 minutes Number of Risk Factors PONV Score Height & Weight Height & Weight: Anesthesia: Height & Weight Height 5 ft 10 in 10/05/23 20:03 Weight: 86.001 kg 10/05/23 20:03 Body Mass Index (BMI) 27.1 10/05/23 20:03 Respiratory Assessment Respiratory Assessment - it telecom technician: Respiratory Tract Infection Hx - it telecom technician Hx Respiratory Tract Infection No 10/05/23 15:01 STOP Sleep Apnea STOP Sleep Apnea - it telecom technician: STOP Sleep Apnea - it telecom technician Hx Hypertension No 10/05/23 14:40 Hx Sleep Apnea No 10/05/23 14:40 CPAP BIPAP Do you snore loudly (louder No 10/05/23 14:40 than talking or can be heard Do you often feel tired/ No 10/05/23 14:40 fatigued/ sleepy during daytime? Has anyone observed you stop No 10/05/23 14:40 breathing during sleep? STOP Results Negative 10/05/23 14:40 QUESTION #5 FULL TEXT : Do you snore loudly (louder than talking or can be heard through closed doors)? 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 Specify any problems Hx of Preganancy in last 3 N/A 10/05/23 14:40 Months Nurse Filling Out Transfusion FSTEINER 10/05/23 14:40 & Questions: Date: 10/05/23 10/05/23 14:40 Time: 14:42 10/05/23 14:40 Patient unable to answer at this time (ie. confused, unrespo /Reproduction History /Reproductive History - it telecom technician: /Reproductive Hx- it telecom technician Hx Now No 10/05/23 15:01 Gestational Age (in weeks): EDC: Hx Hx Para Hx Section SAB No 10/05/23 15:01 Active Medications Active Medications: Current Medications Generic Name Dose Route Start Last Admin Trade Name Freq PRN Reason Stop Dose Admin Acetaminophen 500 mg 10/05/23 14:05 10/06/23 03:46 Acetaminophen 500 Mg Tablet PO 500 mg Q6H PRN PRN Administration Pain Score 1-10 Hydromorphone HCl 0.5 mg 10/05/23 14:05 Hydromorphone 0.5 Mg/0.5 Ml Syringe IV Q4H PRN PRN Pain Score 6-10 Sodium Chloride 1,000 mls @ 125 mls/hr 10/05/23 14:05 10/06/23 06:18 IV 125 mls/hr .Q8H SHELLI Administration Pantoprazole Sodium 40 mg/ 110 mls @ 330 mls/hr 10/06/23 10:00 Sodium Chloride IV Q24 SHELLI Cefepime HCl 2 gm/ Sodium 100 mls @ 200 mls/hr 10/05/23 22:00 10/05/23 22:59 Chloride IV Infused Q12 SHELLI Infusion Sodium Chloride 250 mls @ 15 mls/hr 10/05/23 14:45 IV .[id number] PRN Additional IVPB Infusion Sodium Chloride 250 mls @ 15 mls/hr 10/05/23 14:45 IV .[id number] PRN Saline Flush Ondansetron HCl 4 mg 10/05/23 14:05 Ondansetron 4 Mg/2 Ml Vial IV Q6H PRN PRN NAUSEA/VOMITING Sodium Chloride 10 - 40 ml 10/05/23 14:45 0.9% Saline Lock 10 Ml Syringe IV UD PRN SALINE FLUSH PFSH Medical History Former smoker Migraines Home Medications ?Medication ?Instructions ?Recorded ?Last Taken ?Type citalopram 20 mg tablet 20 mg PO DAILY 10/03/23 Unknown History fexofenadine 60 mg-pseudoephedrine 1 tab PO Q12H PRN allergy symptoms 10/03/23 Unknown History ER 120 mg tablet,ext.release,12 hr (Kamala-D 12 Hour) hydrocortisone 2.5 % topical cream 1 applic [place] BID HEMORRHOIDS 10/03/23 Unknown History with perineal applicator (Procto-Med HC) pantoprazole 20 mg tablet,delayed 20 mg PO BID #28 tabs 10/03/23 10/04/23 Rx release (Protonix) sucralfate 1 gram tablet 1 g PO Q6H 10/03/23 Unknown History famotidine 20 mg tablet (Acid 20 mg PO DAILY 10/05/23 Unknown History Controller) ketotifen fumarate 0.025 % (0.035 1 drp EACH EYE BID PRN allergy 10/05/23 Unknown History %) eye drops (Alaway) symptoms loratadine 10 mg tablet (Allergy 10 mg PO DAILY 10/05/23 Unknown History Relief (loratadine)) sumatriptan succinate 50 mg tablet 50 mg PO DAILY PRN migraine 10/05/23 Unknown History headache Allergy/AdvReac Type Severity Reaction Status Date / Time Penicillins AdvReac Intermediate Vomiting Verified 10/05/23 05:55 Surgical History no surgical history Social History Smoking Status: Former smoker Review of Systems (Anesthesia) ROS Narrative System reviewed and no additional complaints, except as documented.
--- NOTE | 2023-10-06 08:00 | GALL_PTH ---
PATIENT: CHELLE TORRES LOC: MS3 U#:[id number] AGE/SX: 48/M ROOM: [facility] RE10/05/[address]: Dr. Kameron Garay MD : 1975 BED: 1 DIS: 10/07/2023 SPEC #: [id number] RECD: 10/08/23 07:20 STATUS: H[employer]TER [employer]ES #: [id number] OLINDA: 10/06/23 08:[address]: Kameron Garay DEPT: SURGICAL PATHOLOGY RECD BY: Peg York ENTERED: 10/08/23 08:48 SP TYPE: ELANA LARA DR: Dr. Nicolás Flowers MD Tissues: Gallbladder, NOS Procedures: Surgery Specimen Level III HEADER OPERATION: Laparoscopic cholecystectomy with aborted intraoperative PRE-OP DIAGNOSIS: Acute calculous cholecystitis, hyperbilirubinemia TISSUE SUBMITTED: Gallbladder MICROSCOPIC DIAGNOSIS Gallbladder, cholecystectomy: Acute and chronic hemorrhagic cholecystitis and cholelithiasis. SJ/mr 10/09/2023 MICROSCOPIC DESCRIPTION Slides are reviewed. GROSS DESCRIPTION pgaReceived is one container labeled with the patient's name and designated gallbladder. The specimen consists of a gallbladder measuring 10.5 cm in length and up to 3.5 cm in diameter. The external surface is pink-matamoros, smooth and glistening for the most part. Focally it is granular, hemorrhagic and contains cautery artifact. The gallbladder contains multiple blood clots and multiple light yellow mulberry stones measuring in aggregate 1.8 x 1.5 x 0.5 cm and 0.3 to 0.5 cm in greatest dimension. The mucosa is congested and hemorrhagic. Section of the gallbladder wall also reveal congested and hemorrhagic cut surfaces. The gallbladder wall measures up to 0.5 cm in thickness. Home Theater Expert sections from the gallbladder and the cystic duct are submitted in one cassette. / DEVONTE: 10/08/2023 TC:2 CPT: 48532
[2023-10-06] MEDS: Cefepime HCl 2 GM in 0.9% Normal Saline (100mL MB+) 100 ML IV ×2 (08:22→21:38)
--- NOTE | 2023-10-06 08:30 | RAD_ITS ---
INDICATION: LAP BUBBA EXAMINATION/TECHNIQUE: Two cine runs intraoperative views are presented for evaluation. Total Fluoroscopic Time: 39.1 seconds . Radiation dosage index: 12.7 mGy. COMPARISON: Gallbladder ultrasound of 10/05/2023 FINDINGS: Extravasated contrast is seen in the right upper quadrant. The common bile duct is not opacified. RAD/Cholangiogram/ O R,Initial IMPRESSION: Extravasated contrast in the right upper quadrant. The common bile duct is not opacified. Electronically Signed: Collin Ortiz MD at 12:29 EDT ,
[2023-10-06] MEDS: Pantoprazole Sodium 40 MG in 0.9% Normal Saline (100mL MB+) 100 ML 330 MG IV (10:00)
[2023-10-06] MEDS: Bupiv/Epi 0.25% 30 ML Vial (10:43)
--- NOTE | 2023-10-06 10:45 | PCM.OPRPT ---
Report of Operation Date of Procedure: 10/06/23 Pre-Operative Diagnosis: Acute cholecystitis Post-Operative Diagnosis: Severe acute cholecystitis with hydrops Surgery/Procedure Performed:: Laparoscopic cholecystectomy with aborted intraoperative cholangiogram Surgeon: Kameron Garay servomechanism assembler: Christina Troy Type of Anesthesia: General/Supplemental Anesthesiologist: Sorin Greco Specimen's removed: Gallbladder Estimated Blood Loss (mL): 50 Description of Procedure: After proper identification in the preoperative holding area the patient was brought to the operating room where he was positioned supine on the operating room table. Preoperatively SCDs were connected and antibiotics were redosed. General anesthesia was then induced. Patient's abdomen was prepped and draped in usual sterile fashion. A formal timeout was conducted to confirm both patient and the procedure. Procedure was begun with a supraumbilical incision which was extended deeply down to the level of the fascia. The fascia was elevated and incised, as well as the peritoneum. A finger sweep was performed to ensure there were no underlying adhesions and a 12 mm balloon trocar was inserted. Pneumoperitoneum was established at 15 mmHg. Three additional trocars (all 5 mm) were placed in the epigastrium and in the right upper quadrant. Inspection of the peritoneum revealed no inadvertent injury to the viscera below. The gallbladder was visualized with moderate to severe inflammation and adhesions to the underlying omentum. These adhesions were swept away and gallbladder fundus was then grasped and elevated cephalad. This retraction was made difficult by the exceptional tautness of the gallbladder due to the edema and infection present. I attempted to disrupt the outer peritoneal rind about this severely edematous gallbladder using blunt dissection or alternatively with bursts of electrocautery. I was able to do so laterally and worked to enter plane against the gallbladder wall. Visualization was obscured by some general oozing but ultimately I was able to define the gallbladder wall and began working more proximally to where I believe the duct to reside. During this dissection of the rind a inadvertent rent was made in the friable gallbladder wall and resulted in spillage of copious purulent material consistent with a diagnosis of hydrops. Suction inbound call center representative was used to evacuate the spillage of this material. Then, using careful dissection more inferiorly the peritoneum was opened and the structures of the hepatocystic triangle were delineated. I was unable to fully establish a critical view of safety given the density of the inflammation between the cystic duct and the cystic artery but I was able to clearly come around the duct. I attempted to obtain a cholangiogram first with a Salas clamp. However, despite apparent occlusion of the more proximal gallbladder infundibulum the contrast did not propagate in an antegrade fashion so I attempted to reposition the Salas clamp at a 90 degree angle to the initial attempt. Unfortunately this led to extravasation of saline from our prior puncture site with the catheter. Thus I resolved to try different method for the cholangiogram and requested a larger size port for the epigastrium. After instillation of some additional local anesthetic and upsizing our epigastric port to a 12 mm port a 12 mm clip or rn was introduced and the duct was secured distally. I then made a small rent in the cystic duct but there was no backflow of bile. I thus tried to milk the duct from proximal to distal and in doing so was able to expel a small stone from the cystic duct which was delivered free of the peritoneal cavity. Once again I tried to cannulate the cystic duct with a metal tipped cholangiocatheter. While it appeared that the catheter entered the opening every time I clipped the catheter into place and tried to apply pressure to the saline and the syringe there was extravasation. I considered trying to sync the catheter deeper within the biliary tree, however, it appeared we had a short friable cystic duct and the common bile duct appeared close at hand. Upon making this observation and confirming that there were no other ductal structures entering the gallbladder I doubly clipped the cystic duct and sharply divided it. I then moved more medially with my dissection where I believed I had identified the trunk of the cystic artery coursing along the liver capsule and a dense rind of inflammatory tissue. Not wanting to mistaken this for a more significant vessel I chose to carefully dissect directly against the gallbladder and secured several branching vessels to the gallbladder with a single clip while burning the other side. Ultimately in performing this process I was able to free the gallbladder from the underlying medial rind of inflammation. As we moved more distally I could confirm the cystic artery terminating directly in the fundal region of the gallbladder so it was triply clipped and sharply divided at that point. The remaining gallbladder attachments to the gallbladder fossa/rind were then removed from the gallbladder fossa with the use of electrocautery. Limited selective electrocautery was used to obtain hemostasis in the gallbladder fossa. The gallbladder was placed in an Endo Catch bag and removed from the peritoneum. Morison's pouch was irrigated and the effluent was suctioned free of the peritoneum. Hemostasis was again confirmed. Given the presence of some bile spillage and an interest in monitoring the occlusion of the cystic duct I chose to place a 15 Uzbek round Jayson drain at the inferior margin of the liver and secured this at the skin with a 2-0 nylon suture. Pneumoperitoneum was evacuated and the fascia of the 12 mm port sites was closed with #1Vicryl in a [id number] fashion. A total of 30 mL of anesthetic was injected at the port sites for postoperative pain control. The skin of each port site was then closed in subcuticular fashion using 4-0 Monocryl. Steri-Strips and bandages were applied as dressings. Patient tolerated the procedure well without any apparent complications. On emergence from their anesthetic the patient was taken to PACU for ongoing recovery. Grafts/Implants Used: 15 Uzbek round Jayson drain Complications None Admit VTE Documentation VTE Mechan Device Prophylaxis: SCD's Procedures Digestive 40xxx-49xxx: 12360 Laparoscopic cholecystectomy
--- NOTE | 2023-10-06 11:03 | PCM.POSTANE2 ---
Anesthesia Postop Eval I Sum Anesthesia Postop Eval I Summary Anesthesia Postop Eval I Summary: Anesthesia Postop Eval I: Assessment Summary Airway patent Spontaneous unlabored respirations Mental status nausea Vomiting Anesthesia Postop Eval I: Fluid Summary Crystalloid volume administer (ml) Colloids volume administered ( ml) Blood Product volume administered (ml) Total IV fluid infused Anesthesia Postop Eval I: Summary Notes Anesthesia Complication Anesthesia Complication Comment: Post-operative progress note Anesthesia: Postop Eval II Evaluation Mental status: Awake and Asleep Pain Level: 0 nausea: No Vomiting: No
--- NOTE | 2023-10-06 11:04 | PCM.POST.ANE ---
Anesthesia: Postop Eval I Current Vital Signs Temperature: 37 F Pulse Rate: 109 Blood Pressure: 128/78 Respiratory Rate: 16 Pulse Ox: 100 Assessment Airway patent: Yes Spontaneous unlabored respirations: Yes nausea: No Vomiting: No Anesthesia Complication: No Fluid Hydration Crystalloid volume administer (ml): 1.5 Total IV fluid infused: 1.5 Progress Note Anesthesia document: Postop Eval 1 completed: Yes
[2023-10-06] MEDS: Ibuprofen 400 MG Tablet PO ×2 (12:23→18:19)
--- NOTE | 2023-10-06 13:06 | CASEMGMT ---
SHABBIR STRANGE Assessment: Face to Face with pt for initial transition planning/care coordination assessment. RN ALIE introduced self and role at [facility], pt voices understanding and consents to assessment. Pt is A&O x4 and answers all questions appropriately at this time. Pt resting in bed in no distress, pt at bedside. Pt agreeable to answering questions with in room. Care providers, pharmacy, and demographics verified/updated. Admitting Dx: Cholecystitis PCP: Lionel Specialists: Denies Preferred Pharmacy: [facility] Insurance: MMO Prescription Benefit: yes LNOK: Living Arrangements: Pt lives with in a 1 story home with 0 steps to enter. ADLs: Pt I with ADLs and IADLs. Transportation: Pt drives self and denies concerns with transportation. DME: Denies HHC/SNF: Denies Hx of. Pt states no concerns with going home at time of dc. Pt states no further concerns/needs. CM to follow. Advised pt to ask CM if any further question/concerns/needs arise, voices understanding. Pt Goal: Home Plan: Home, will follow plan of care. Camilo SHEA CM
[2023-10-06] MEDS: Polyethylene Glycol 3350 17 GM PACKET PO (13:33)
--- NOTE | 2023-10-06 15:52 | NURSING ---
uvula and surrounding area edematous, c/o it touching his tongue. Dr Garay notified.
[2023-10-06] MEDS: BENZOCAINE/MENTHOL 1 LOZENGE MUCOUS MEM (16:16)
[2023-10-06] MEDS: DiphenhydrAMINE 50 MG/ML Syringe 25 MG IV (16:33)
[2023-10-06] MEDS: 0.9% Saline Lock 10 ML Syringe IV (16:34)
[2023-10-07] MEDS: Ibuprofen 400 MG Tablet PO ×3 (00:10→11:23)
[2023-10-07 03:30] VITALS: BP 133/83; PULSE 86; RESP 18; TEMP 36.9; O2SAT 98
[2023-10-07] MEDS: 0.9% Normal Saline (1000mL) 1,000 ML 125 ML IV (04:20)
[2023-10-07 05:21] LABS: Absolute Lymphocyte Count 1.11 X10^3/uL (0.83-4.51); Absolute Neutrophil Count 9.1 X10^3/uL (2.0-7.7); Basophil# 0.04 X10^3/uL; Basophil% 0.3 % (0-1); Eosinophil# 0.16 X10^3/uL; Eosinophils% 1.4 % (0-5); Hematocrit 30.9 % (40-54); Hemoglobin 10.5 g/dL (13.0-16.5); Lymphocyte # 1.11 X10^3/ul (0.83-4.51); Lymphocyte % 9.5 % (19-41); Mean Corpuscular Volume 94.2 fL (80-94); Monocyte# 1.21 X10^3/uL; Monocyte% 10.4 % (0-10); NRBC Flagged by Analyzer 0 % (0-5); Neutrophil # 9.07 X10^3/uL (2.7-7.7); Neutrophil % 77.9 % (47-70); Platelet Count 262 K/mm3 (150-450); RBC Distribution Width CV 13.2 % (11.6-14.6); RBC Distribution Width SD 45.9 fl (35.1-43.9); Red Blood Count 3.28 M/mm3 (4.6-6.2); White Blood Count 11.7 K/mm3 (4.4-11.0)
[2023-10-07 06:21] LABS: ALB/GLOB Ratio 0.8 RATIO (0.9-2.4); AST(SGOT) 40 U/L (15-37); Alanine Aminotransfer ALT/SGPT 44 U/L (16-61); Albumin, Serum 2.4 g/dL (3.2-5.0); Alkaline Phosphatase 44 U/L (45-117); Anion Gap 7 (5-15); BUN 7 mg/dL (7-18); BUN/Creat Ratio 9.4 RATIO (10-20); Calcium,Total 7.8 mg/dL (8.5-10.1); Chloride 109 mmol/L (98-107); Creatinine, Serum 0.75 mg/dL (0.70-1.30); EST Glomerular Filtration Rate 120 mL/min (>60); Est Glom Filt Rate - Afr Amer 145 mL/min (>60); Estimated Creatinine Clearance 127.07 ml/min; Globulin 2.9 g/dL (2.2-4.2); Glucose 138 mg/dL (74-106); Potassium 2.7 mmol/L (3.5-5.1); Protein, Total 5.3 g/dL (6.4-8.2); Sodium Level 140 mmol/L (136-145)
--- NOTE | 2023-10-07 08:04 | PN.SURG_ITS ---
Subjective Subjective Patient seen and examined during AM rounds. He is found sitting out of bed in a chair. His is present and states that she has been pushing her to walk more regularly which he apparently did this morning. He shares that he has ongoing abdominal discomfort, but that the sore throat from his intubation yesterday is nearly as intense from a discomfort standpoint. He denies any respiratory difficulty but states that it is tender to swallow. He is passing flatus but still has not had a bowel movement. Objective Data Objective Data Vital Signs: Vital Signs Temp Pulse Resp BP Pulse Ox O2 Del Method 98.4 F 86 18 133/83 H 98 Room Air 10/07/23 03:30 10/07/23 03:30 10/07/23 03:30 10/07/23 03:30 10/07/23 03:30 10/07/23 03:30 Oxygen Delivery Method Room Air Weight: 189 lb 9.6 oz Body Mass Index (BMI) 27.1 Intake & Output: Intake and Output for Last 24 Hours 10/05/23 10/06/23 10/07/23 23:59 23:59 23:59 Intake Total 2057.33 / 2057.33 2985.00 / 3225.00 1315.42 / 1315.42 Output Total Balance 2058.33 / 2058.33 2967.00 / 3207.00 1315.42 / 1315.42 Lab / Micro Data 10/07/23 05:10 10/07/23 05:10 Labs: Laboratory Results - last 24 hr 10/07/23 05:10: WBC 11.7 H, RBC 3.28 L, Hgb 10.5 L, Hct 30.9 L, MCV 94.2 H, MCH 32.0, MCHC 34.0, RDW Std Deviation 45.9 H, RDW Coeff of Trevon 13.2, Plt Count 262, MPV 9.0, Immature Gran % (Auto) 0.500, Neut % (Auto) 77.9 H, Lymph % (Auto) 9.5 L, [place] % (Auto) 10.4 H, Eos % (Auto) 1.4, Baso % (Auto) 0.3, Absolute Neuts (auto) 9.1 H, Absolute Lymphs (auto) 1.11, Nucleated RBC % 0, Sodium 140, P otassium 2.7 L*, Chloride 109 H, Carbon Dioxide 24.0, Anion Gap 7, BUN 7, Creatinine 0.75, Estim Creat Clear Calc 127.07, Est GFR (MDRD) Af Amer 145, Est GFR (MDRD) Non-Af 120, BUN/Creatinine Ratio 9.4 L, Glucose 138 H, Calcium 7.8 L, Total Bilirubin 0.90, AST 40 H, ALT 44, Alkaline Phosphatase 44 L, Total Protein 5.3 L, Albumin 2.4 L, Globulin 2.9, Albumin/Globulin Ratio 0.8 L Radiography Diagnostic Testing: Radiology Impression Cholangiogram 10/06/23 08:30 IMPRESSION: Extravasated contrast in the right upper quadrant. The common bile duct is not opacified. Electronically Signed: Collin Ortiz MD at 12:29 EDT , Physical Exam Const oriented x3 and no apparent distress HEENT HEENT Narrative: Posterior pharynx shows mild erythema and uvula appears to be extended slightly more downward but there is clear space around it laterally. Resp normal respiratory effort GI GI Narrative: Mildly distended, operative dressings intact, right upper quadrant drain with minimal serous output that is nonbilious. Patient was some expected tenderness about incision sites but presenting tenderness that had been more diffuse is improved. Assessment & Plan Assessment/Plan (1) Acute calculous cholecystitis: PLAN: Patient is a 48-year-old male with approximately 48-hour history of acute onset upper abdominal pain with associated nausea and vomiting. Workup had been consistent with diagnosis of acute cholecystitis and patient is now postoperative day 1 from laparoscopic cholecystectomy with aborted cholangiography. Patient is overall doing as expected with some mild uvulitis. I find both his labs and his drain character reassuring so his drain was pulled at bedside today and was well-tolerated. We will continue to work for pain control with oral pain medications and icing of his incisions. Patient does not appear to have any airway compromise from his edematous pharynx. He does have some sore throat so we will plan to advance him to a soft regular diet and continue Cepacol lozenges. Will also continue bowel regimen with MiraLAX to try to assist patient with some underlying constipation. His white count is notably down trended to 11 from 16 and with his benign drain character I will discontinue his IV antibiotic. I did share with patient that his hemoglobin is down to 10.5 from a present in level of 13. Patient and his both admit to probable dehydration at admission. I will saline lock his IV fluids and see what he bounces out to, however, I do believe there is some underlying anemia as operative losses were not commensurate with this hemoglobin level. I have encouraged patient to consider outpatient colonoscopy if this anemia persists. Disposition: Will follow-up above changes but anticipate discharge later today. Kameron Garay MD General Surgery Endocrine Surgery Pager: [facility] [address] [place] [address], [facility], [address] [place] [address] Office: [phone] (2) Hyperbilirubinemia: PLAN: Hyperbilirubinemia does appear to have been related to patient's acute inflammatory state. Unfortunately were unable to complete a cholangiogram yesterday in the OR but patient's bilirubin is now within normal limits and his alkaline phosphatase level is actually low today. Charges/Coding Visit Charges Inpatient E&M: 38135 Subs Hosp L2
[2023-10-07 08:37] VITALS: BP 145/70; PULSE 96; RESP 18; TEMP 37; O2SAT 96
[2023-10-07] MEDS: Potassium Chloride Oral Tablet 20 MEQ 60 MEQ PO (08:57)
[2023-10-07] MEDS: Polyethylene Glycol 3350 17 GM PACKET PO (08:57)
[2023-10-07] MEDS: Famotidine 20 MG Tablet PO (10:25)
[2023-10-07] MEDS: Pantoprazole Sodium 20 MG Tablet PO (10:25)
[2023-10-07 14:07] VITALS: BP 126/72; PULSE 79; RESP 18; TEMP 36.7; O2SAT 98
--- NOTE | 2023-10-07 16:13 | DCINST_ITS ---
Discharge Instructions Diet Discharge Diet: No restrictions Activity Discharge Activity: May Not Drive (No driving while using narcotic pain medication) and May Shower (Postoperative day 1) May shower in (days): 2 Ice area for (Minutes): 20 Lifting Restrictions: No lifting greater than 15 pounds for 2 weeks after surgery Dressing / Incision Call your doctor if your incision/area has: Continuous Slow Oozing, Increased Pain/ Swelling, Increased Redness, Foul Smelling Discharge and Swelling at the incision site Call your doctor if you observe: Fever of 101 or Higher Remove Dressing in: 2 days (Please leave Steri-Strips intact until they fall off spontaneously or are taken off at your follow-up visit) Cleanse incision/area with: Soap & Water Follow Up Care Please Follow Up With: Kameron Garay MD When: 10-14 days postop Test Results: Test results from this visit will be discussed in further detail at your follow- up appointment, if applicable. Discharge Plan Admission Admit Date/Time: 10/05/23 14:05 Primary Reason for Your Visit: Gallbladder Surgery Attending Provider: Kameron Garay Primary Care Provider: Nicolás Flowers Discharge Orders/Prescriptions Prescriptions: Continued sucralfate 1 gram tablet 1 g PO Q6H pantoprazole [Protonix] 20 mg tablet,delayed release (DR/EC) 20 mg PO BID Qty: 28 0RF citalopram 20 mg tablet 20 mg PO DAILY fexofenadine-pseudoephedrine [Kamala-D 12 Hour] 60-120 mg tablet extended release 12 hr 1 tab PO Q12H PRN (Reason: allergy symptoms) hydrocortisone [Procto-Med HC] 2.5 % cream with perineal applicator 1 applic CO BID sumatriptan succinate 50 mg tablet 50 mg PO DAILY PRN (Reason: migraine headache) famotidine [Acid Controller] 20 mg tablet 20 mg PO DAILY loratadine [Allergy Relief (loratadine)] 10 mg tablet 10 mg PO DAILY ketotifen fumarate [Alaway] 0.025 % (0.035 %) drops 1 drp EACH EYE BID PRN (Reason: allergy symptoms) Rx Instructions: administer at least 8 hours apart Referrals / Follow Up: Nicolás Flowers MD [Primary Care Provider] - Disposition Disposition (needs filled in before D/C Order can be placed): Home, Self Care
--- NOTE | 2023-10-07 16:16 | PCM.DC.SUM ---
Providers Date of Admission: 10/05/23 Primary Care Physician: Dr. Nicolás Flowers MD Reason For Visit: CHOLECYSTITIS Diagnosis Discharge Diagnosis (1) Acute calculous cholecystitis: Status: Acute Code(s): K80.00 - Calculus of gallbladder with acute cholecystitis without obstruction Plan: Patient is a 48-year-old male with approximately 48-hour history of acute onset upper abdominal pain with associated nausea and vomiting. Workup had been consistent with diagnosis of acute cholecystitis and patient is now postoperative day 1 from laparoscopic cholecystectomy with aborted cholangiography. Patient is overall doing as expected with some mild uvulitis. I find both his labs and his drain character reassuring so his drain was pulled at bedside today and was well-tolerated. We will continue to work for pain control with oral pain medications and icing of his incisions. Patient does not appear to have any airway compromise from his edematous pharynx. He does have some sore throat so we will plan to advance him to a soft regular diet and continue Cepacol lozenges. Will also continue bowel regimen with MiraLAX to try to assist patient with some underlying constipation. His white count is notably down trended to 11 from 16 and with his benign drain character I will discontinue his IV antibiotic. I did share with patient that his hemoglobin is down to 10.5 from a present in level of 13. Patient and his both admit to probable dehydration at admission. I will saline lock his IV fluids and see what he bounces out to, however, I do believe there is some underlying anemia as operative losses were not commensurate with this hemoglobin level. I have encouraged patient to consider outpatient colonoscopy if this anemia persists. Disposition: Will follow-up above changes but anticipate discharge later today. Kameron Garay MD General Surgery Endocrine Surgery Pager: [facility] [address] [place] [address], [facility], [address] [place] [address] Office: [phone] (2) Hyperbilirubinemia: Status: Acute Code(s): E80.6 - Other disorders of bilirubin metabolism Plan: Hyperbilirubinemia does appear to have been related to patient's acute inflammatory state. Unfortunately were unable to complete a cholangiogram yesterday in the OR but patient's bilirubin is now within normal limits and his alkaline phosphatase level is actually low today. Medications at Discharge Home Medications citalopram 20 mg tablet 20 mg PO DAILY 10/03/23 fexofenadine 60 mg-pseudoephedrine ER 120 mg tablet,ext.release,12 hr (Kamala-D 12 Hour) 1 tab PO Q12H PRN allergy symptoms 10/03/23 hydrocortisone 2.5 % topical cream with perineal applicator (Procto-Med HC) 1 applic ID BID HEMORRHOIDS 10/03/23 pantoprazole 20 mg tablet,delayed release (Protonix) 20 mg PO BID #28 tabs 10/03/23 sucralfate 1 gram tablet 1 g PO Q6H 10/03/23 famotidine 20 mg tablet (Acid Controller) 20 mg PO DAILY 10/05/23 ketotifen fumarate 0.025 % (0.035 %) eye drops (Alaway) 1 drp EACH EYE BID PRN allergy symptoms 10/05/23 loratadine 10 mg tablet (Allergy Relief (loratadine)) 10 mg PO DAILY 10/05/23 sumatriptan succinate 50 mg tablet 50 mg PO DAILY PRN migraine headache 10/05/23 Hospital Course Operations cholecystecomy (10/06/2023) Summary of Care Provided Hospital Course: Patient is a 48-year-old male who was admitted via the [facility] ER on 10/05/2023 with a diagnosis of acute calculus cholecystitis. He was administered IV antibiotics and held n.p.o. past midnight in anticipation of surgery on 10/06/2023. During his operation he was found to have severe acute cholecystitis that obscured the relevant anatomy and led to more tedious dissection. Multiple attempts were made at intraoperative cholangiography, however, this portion of the procedure was aborted on account of a friable cystic duct and desire to avoid a postoperative bile leak. Still, during the case there was some local contamination from the gallbladder which showed evidence of hydrops and a drain was placed. In order to keep patient under clinical observation with ongoing IV antibiotic therapy patient was returned to the hospital [facility] for this care evening of his operation. Morning of postoperative day 1 his abdominal exam was improved, his drain output was scant, and his labs were reassuring. Thus antibiotics were discontinued, patient's diet was advanced, and ongoing work was made towards patient's complaints of constipation. Ultimately patient was able to have a bowel movement and displayed further clinical improvement so he was deemed fit for discharge home. Prior to signing this order discharge instructions were reviewed with patient and his spouse at bedside. They confirmed understanding. There is also an expectation made for outpatient follow-up to review healing and postoperative pathology. Physical Exam Const alert, oriented x3 and no apparent distress Resp normal respiratory effort GI GI Narrative: Operative dressing and drain site dressing are clean dry and intact. There is mild abdominal distention. Patient has mild tenderness about his incision sites. Weight / BMI Weight Weight: 189 lb 9.6 oz Body Mass Index (BMI) 27.1 ABG / Lab / Microbiology Data 10/07/23 05:10 10/07/23 05:10 Laboratory: Laboratory Results - last 24 hr 10/07/23 05:10: WBC 11.7 H, RBC 3.28 L, Hgb 10.5 L, Hct 30.9 L, MCV 94.2 H, MCH 32.0, MCHC 34.0, RDW Std Deviation 45.9 H, RDW Coeff of Trevon 13.2, Plt Count 262, MPV 9.0, Immature Gran % (Auto) 0.500, Neut % (Auto) 77.9 H, Lymph % (Auto) 9.5 L, [place] % (Auto) 10.4 H, Eos % (Auto) 1.4, Baso % (Auto) 0.3, Absolute Neuts (auto) 9.1 H, Absolute Lymphs (auto) 1.11, Nucleated RBC % 0, Sodium 140, Potassium 2.7 L*, Chloride 109 H, Carbon Dioxide 24.0, Anion Gap 7, BUN 7, Creatinine 0.75, Estim Creat Clear Calc 127.07, Est GFR (MDRD) Af Amer 145, Est GFR (MDRD) Non-Af 120, BUN/Creatinine Ratio 9.4 L, Glucose 138 H, Calcium 7.8 L, Total Bilirubin 0.90, AST 40 H, ALT 44, Alkaline Phosphatase 44 L, Total Protein 5.3 L, Albumin 2.4 L, Globulin 2.9, Albumin/Globulin Ratio 0.8 L D/C Instructions Discharge Diet: No restrictions May shower in (days): 2 Ice area for (Minutes): 20 Call your doctor if your incision/area has: Continuous Slow Oozing, Increased Pain/ Swelling, Increased Redness, Foul Smelling Discharge and Swelling at the incision site Call your doctor if you observe: Fever of 101 or Higher Cleanse incision/area with: Soap & Water Please Follow Up With: Kameron Garay MD When: 10-14 days postop Meaningful Use Info Meaningful Use Meaningful Use Diagnoses (Choose all that apply): None applicable Ischemic Stroke Statin Dosing Therapy Reference: STATIN DOSE THERAPY REFERENCE: * Patients > 75 years receive moderate or high dose statin therapy. * Patients 75 years or YOUNGER should receive HIGH intensity statin dose unless contraindicated. You will be required to document reason for non-treatment if statin daily dose does not meet guidelines. HIGH DOSE STATIN THERAPY DAILY Atorvastatin > than or = to 40 mg Rosuvastatin > than or = to 20 mg Amlodipine + Atorvastatin > than or = to 2.5/40 mg Ezetimibe + Simvastatin 10/80 mg Simvastatin 80mg Discharge Plan Admission Admit Date/Time: 10/05/23 14:05 Primary Reason for Your Visit: Gallbladder Surgery Attending Provider: Kameron Garay Primary Care Provider: Nicolás Flowers Discharge Orders/Prescriptions Prescriptions: Continued sucralfate 1 gram tablet 1 g PO Q6H pantoprazole [Protonix] 20 mg tablet,delayed release (DR/EC) 20 mg PO BID Qty: 28 0RF citalopram 20 mg tablet 20 mg PO DAILY fexofenadine-pseudoephedrine [Kamala-D 12 Hour] 60-120 mg tablet extended release 12 hr 1 tab PO Q12H PRN (Reason: allergy symptoms) hydrocortisone [Procto-Med HC] 2.5 % cream with perineal applicator 1 applic ID BID sumatriptan succinate 50 mg tablet 50 mg PO DAILY PRN (Reason: migraine headache) famotidine [Acid Controller] 20 mg tablet 20 mg PO DAILY loratadine [Allergy Relief (loratadine)] 10 mg tablet 10 mg PO DAILY ketotifen fumarate [Alaway] 0.025 % (0.035 %) drops 1 drp EACH EYE BID PRN (Reason: allergy symptoms) Rx Instructions: administer at least 8 hours apart Referrals / Follow Up: Nicolás Flowers MD [Primary Care Provider] - Disposition Disposition (needs filled in before D/C Order can be placed): Home, Self Care Charges/Coding Visit Charges Inpatient E&M: 78594 Disch Hosp
== END 2023-10-07 16:52 | disposition home or self-care (01) | DRG 418 ==
LOC: ED 13:52 → MS3 14:23
PROVIDERS: Admitting Provider Surgery; Emergency Provider Emergency Medicine; PCP Family Medicine; Visit Provider Surgery
PROC: 0FT44ZZ Resection of Gallbladder, Percutaneous Endoscopic Approach (ICD-10-PCS; CPT 47610; principal; 2023-10-06 07:40)
DX: K80.00 Calculus of gallbladder with acute cholecystitis without obstruction (principal); K82.1 Hydrops of gallbladder; K91.71 Accidental puncture and laceration of a digestive system organ or structure during a digestive system procedure; K12.2 Cellulitis and abscess of mouth; K59.00 Constipation, unspecified; Y65.8 Other specified misadventures during surgical and medical care; Y92.234 Operating room of hospital as the place of occurrence of the external cause; Z53.09 Procedure and treatment not carried out because of other contraindication; Z79.82 Long term (current) use of aspirin; Z79.01 Long term (current) use of anticoagulants; Z79.899 Other long term (current) drug therapy; Z87.891 Personal history of nicotine dependence
CPT/HCPCS: 36415; 74300; 76000; 76705; 80053; 83690; 85025; 88304; 93005; 99284; J7030; J7050; J7120; A4216; J2405

== ENCOUNTER 2023-10-09 06:41 | Inpatient (IN) | payer OTHER, SELFPAY ==
[2023-10-09] VITALS (17 sets, daily range): BP systolic 126–223; BP diastolic 82–120; PULSE 62–101; RESP 14–22; TEMP 36.7–36.9; O2SAT 97–100; BMI 28.3
[2023-10-09] MEDS: Lactated Ringers 1,000 ML 60 ML IV (05:56)
[2023-10-09] MEDS: 0.9% Saline Lock 10 ML Syringe IV (05:56)
[2023-10-09 07:05] LABS: Absolute Lymphocyte Count 1.35 X10^3/uL (0.83-4.51); Absolute Neutrophil Count 5.8 X10^3/uL (2.0-7.7); Basophil# 0.04 X10^3/uL; Basophil% 0.5 % (0-1); Eosinophil# 0.29 X10^3/uL; Eosinophils% 3.5 % (0-5); Hemoglobin 10.7 g/dL (13.0-16.5); Lymphocyte # 1.35 X10^3/ul (0.83-4.51); Lymphocyte % 16.3 % (19-41); Mean Corp Hgb Conc 34.5 g/dL (32-36); Mean Corpuscular Hgb 32.2 pg (27.0-32.0); Mean Corpuscular Volume 93.4 fL (80-94); Mean Platelet Vol. 8.9 fl (6.2-12.0); Monocyte# 0.75 X10^3/uL; NRBC Flagged by Analyzer 0 % (0-5); Neutrophil # 5.81 X10^3/uL (2.7-7.7); Neutrophil % 70.1 % (47-70); Platelet Count 360 K/mm3 (150-450); RBC Distribution Width CV 12.8 % (11.6-14.6); RBC Distribution Width SD 44.2 fl (35.1-43.9); Red Blood Count 3.32 M/mm3 (4.6-6.2); White Blood Count 8.3 K/mm3 (4.4-11.0)
[2023-10-09 07:20] LABS: ALB/GLOB Ratio 0.7 RATIO (0.9-2.4); AST(SGOT) 30 U/L (15-37); Alanine Aminotransfer ALT/SGPT 52 U/L (16-61); Albumin, Serum 2.7 g/dL (3.2-5.0); Alkaline Phosphatase 53 U/L (45-117); Anion Gap 6 (5-15); BUN 4 mg/dL (7-18); BUN/Creat Ratio 5.2 RATIO (10-20); Chloride 106 mmol/L (98-107); Creatinine, Serum 0.78 mg/dL (0.70-1.30); EST Glomerular Filtration Rate 115 mL/min (>60); Est Glom Filt Rate - Afr Amer 139 mL/min (>60); Estimated Creatinine Clearance 133.17 ml/min; Globulin 3.7 g/dL (2.2-4.2); Glucose 93 mg/dL (74-106); Potassium 3.2 mmol/L (3.5-5.1); Protein, Total 6.4 g/dL (6.4-8.2); Sodium Level 139 mmol/L (136-145)
[2023-10-09] MEDS: Acetaminophen 325 MG Tablet 650 MG PO ×2 (07:42→16:04)
[2023-10-09] MEDS: Potassium Chloride 10mEq/100mL 10 MEQ/100 ML IV.SOLN. 100 MEQ IV BOLUS ×2 (09:10→10:25)
--- NOTE | 2023-10-09 09:57 | EKG12_ITS ---
Test Reason : PRE OP Blood Pressure : / mmHG Vent. Rate : 074 BPM Atrial Rate : 074 BPM P-R Int : 144 ms QRS Dur : 086 ms QT Int : 396 ms P-R-T Axes : 058 -27 008 degrees QTc Int : 439 ms Normal sinus rhythm Normal ECG When compared with ECG of 05-OCT-2023 20:34, No significant change was found Confirmed by OTTO RAMIREZ, TRENTON ([id number]), editor city MASOUD SHEA ([id number]) on 10/10/2023 1:24:55 PM Referred By: Confirmed By:TRENTON MENJIVAR MD
--- NOTE | 2023-10-09 10:39 | ECHOD_ITS ---
Reason For Study: L RENAL INFARCT Procedure This was a 2D Doppler, Color Flow transthoracic echocardiogram. Limited subcostals, surgical dressings in window. Exam performed portable in patient room. Left Ventricle Normal LV size. Mild concentric left ventricular hypertrophy. Left ventricular systolic function is normal. The left ventricular ejection fraction is 60 %. No regional wall motion abnormalities noted. Right Ventricle Normal RV size. Normal systolic function. Atria Normal left atrium. Normal right atrium. Bubble contrast study negative for right to left interatrial shunt. Mitral Valve Normal mitral valve. Tricuspid Valve Normal tricuspid valve. Aortic Valve Normal aortic valve. Trisinus/trileaflet aortic valve. Pulmonic Valve Normal pulmonic valve. Great Vessels Normal aortic root. The pulmonary artery is normal size. Normal inferior vena cava. Pericardium/Pleural No pericardial effusion. Medication Performed a rapid injection of agitated mix of 9 cc saline and 1cc air to assess for atrial septal defect. MMode/2D Measurements & Calculations LVIDd: 5.1 cm IVSd: 1.2 cm LVOT diam: 2.2 cm LVIDs: 2.9 cm LVPWd: 1.2 cm RVDd: 3.9 cm FS: 43.3 % LVOT area: 3.7 cm2 Ao root diam: 3.5 cm LAV(MOD-bp): 37.2 ml LVAd ap4: 27.5 cm2 LAV(MOD-bp) Indexed: 17.9 ml/m2 LVLd ap4: 7.8 cm LAV(MOD-sp2): 34.5 ml EDV(MOD-sp4): 82.0 ml LAV(MOD-sp4): 36.0 ml EDV(sp4-el): 82.8 ml LVAs ap4: 15.7 cm2 LVLs ap4: 6.6 cm ESV(MOD-sp4): 31.3 ml ESV(sp4-el): 31.6 ml EF(MOD-sp4): 61.9 % EF(sp4-el): 61.8 % LVAd ap2: 26.2 cm2 SV(MOD-sp4): 50.8 ml SV(MOD-sp2): 44.7 ml LVLd ap2: 7.7 cm EDV(MOD-sp2): 74.6 ml EDV(sp2-el): 75.1 ml LVAs ap2: 15.8 cm2 LVLs ap2: 6.9 cm ESV(MOD-sp2): 29.9 ml ESV(sp2-el): 30.5 ml EF(MOD-sp2): 59.9 % SV(sp4-el): 51.1 ml LA dimension(2D): 3.5 cm LA A4 area: 14.3 cm2 RA A4 area: 10.7 cm2 TAPSE: 2.1 cm Time Measurements MV dec time: 0.21 sec Doppler Measurements & Calculations MV E max omar: 84.6 cm/sec Lat Peak E' Omar: 14.7 cm/sec Med Peak E' Omar: 12.1 cm/sec MV A max omar: 60.2 cm/sec E/E' lat: 5.8 E/E' med: 7.0 MV E/A: 1.4 Ao V2 max: 113.8 cm/sec LV V1 max: 90.7 cm/sec MV dec slope: 412.0 cm/sec2 Ao max P.2 mmHg LV V1 max P.3 mmHg Ao V2 mean: 77.6 cm/sec LV V1 mean P.0 mmHg Ao mean P.8 mmHg LV V1 mean: 67.6 cm/sec Ao V2 VTI: 21.1 cm LV V1 VTI: 19.1 cm AV (velocity ratio): 0.91 SAMANTHA(I,D): 3.4 cm2 SAMANTHA(V,D): 3.0 cm2 SV(LVOT): 71.5 ml PA V2 max: 91.2 cm/sec PA max PG (full): 1.5 mmHg ECHO/Echo Complete Interpretation Summary Normal LV size. Left ventricular systolic function is normal. The left ventricular ejection fraction is 60 %. Mild concentric left ventricular hypertrophy. Structurally normal valves. Ordering Physician: Ismael Flynn Performed By: Tere Meraz RDCS and Student
--- NOTE | 2023-10-09 11:15 | HP.PCM.SX_ITS ---
HPI - General General Date of Admission: 10/09/23 HPI Narrative CHELLE TORRES, is a 48 M who presents with epigastric pain. The patient had laparoscopic cholecystectomy on October 05. He presented to an outside hospital overnight complaining of epigastric pain. He says that he was doing well and then all of a sudden it came on and felt like burning in his mid epigastrium. He says it is now gone away and it is calm down. He denies nausea or vomiting or fevers or chills. He was found to have infarct of the left kidney on CT scan he was transferred [facility]. [facility] Medical History (Updated 10/09/23 @ 05:42 by Jolie Deal) High cholesterol Former smoker Migraines Home Medications ?Medication ?Instructions ?Recorded ?Last Taken ?Type citalopram 20 mg tablet 20 mg PO DAILY 10/03/23 10/08/23 History fexofenadine 60 mg-pseudoephedrine 1 tab PO Q12H PRN allergy symptoms 10/03/23 Unknown History ER 120 mg tablet,ext.release,12 hr (Kamala-D 12 Hour) hydrocortisone 2.5 % topical cream 1 applic [place] BID HEMORRHOIDS 10/03/23 Unknown History with perineal applicator (Procto-Med HC) pantoprazole 20 mg tablet,delayed 20 mg PO BID #28 tabs 10/03/23 10/08/23 Rx release (Protonix) famotidine 20 mg tablet (Acid 20 mg PO DAILY 10/05/23 10/08/23 History Controller) loratadine 10 mg tablet (Allergy 10 mg PO DAILY PRN allergy symptoms 10/05/23 Unknown History Relief (loratadine)) sumatriptan succinate 50 mg tablet 50 mg PO DAILY PRN migraine 10/05/23 Unknown History headache acetaminophen 500 mg capsule 500 mg PO Q6H PRN pain 10/09/23 10/08/23 History ibuprofen 200 mg tablet (Advil) 200 mg PO Q6H 10/09/23 10/08/23 History Allergy/AdvReac Type Severity Reaction Status Date / Time Penicillins AdvReac Intermediate Vomiting Verified 10/05/23 05:55 Surgical History (Updated 10/09/23 @ 05:42 by Jolie Deal) History of cholecystectomy Social History Smoking Status: Former smoker ROS Constitutional Constitutional: Denies anorexia, chills, fatigue or fever(s) Eyes Eyes: Denies blurry vision ENT HEENT: Denies abnormal hearing Cardiovascular Cardiovascular: Denies chest pain Respiratory/Chest Respiratory/Chest: Denies cough, dyspnea or dyspnea on exertion Gastrointestinal Gastrointestinal: Reports abdominal pain; Denies coffee ground emesis, nausea or vomiting Genitourinary Genitourinary: Denies change in urinary stream Musculoskeletal Musculoskeletal: Denies abnormal gait Integumentary Integumentary: Denies jaundice Neurologic Neurologic: Denies abnormal gait Psychiatric Psychiatric: Denies anxiety Vital Signs Vital Signs Vital Signs: 10/09/23 05:55 10/09/23 06:12 10/09/23 07:45 Temperature 98.5 F Temperature Source Oral Pulse Rate 93 Pulse Strength Respiratory Rate 18 Respiratory Effort Normal Non-Labored Normal Non-Labored Respiratory Depth Normal Normal Respiratory Pattern Normal Normal Blood Pressure 167/109 H Blood Pressure Mean 128 Blood Pressure Source Monitor Blood Pressure Position Semi-Fowlers Blood Pressure Location Right Arm Pulse Ox 99 Oxygen Delivery Method Room Air Room Air Room Air 10/09/23 10:22 10/09/23 10:31 Temperature 98.1 F Temperature Source Temporal Pulse Rate 62 Pulse Strength Normal (2+) Respiratory Rate 18 Respiratory Effort Respiratory Depth Respiratory Pattern Blood Pressure 140/82 H Blood Pressure Mean 101 Blood Pressure Source Monitor Blood Pressure Position Semi-Fowlers Blood Pressure Location Right Arm Pulse Ox 98 Oxygen Delivery Method Room Air Weight Weight: 197 lb 1.492 oz Body Mass Index (BMI) 28.3 Physical Exam Const oriented x3 and no apparent distress Resp normal respiratory effort GI soft to palpation Inspection: Negative for abdominal distention Extremity normal to inspection Results Lab / Micro Data 10/09/23 06:58 10/09/23 06:58 Labs: Laboratory Results - last 24 hr 10/09/23 06:58: WBC 8.3, RBC 3.32 L, Hgb 10.7 L, Hct 31.0 L, MCV 93.4, MCH 32.2 H, MCHC 34.5, RDW Std Deviation 44.2 H, RDW Coeff of Trevon 12.8, Plt Count 360, MPV 8.9, Immature Gran % (Auto) 0.600, Neut % (Auto) 70.1 H, Lymph % (Auto) 16.3 L, [place] % (Auto) 9.0, Eos % (Auto) 3.5, Baso % (Auto) 0.5, Absolute Neuts (auto) 5.8, Absolute Lymphs (auto) 1.35, Nucleated RBC % 0, Sodium 139, Potassium 3.2 L , Chloride 106, Carbon Dioxide 27.0, Anion Gap 6, BUN 4 L, Creatinine 0.78, Estim Creat Clear Calc 133.17, Est GFR (MDRD) Af Amer 139, Est GFR (MDRD) Non-Af 115, BUN/Creatinine Ratio 5.2 L, Glucose 93, Calcium 9.0, Total Bilirubin 0.70, AST 30, ALT 52, Alkaline Phosphatase 53, Total Protein 6.4, Albumin 2.7 L, Globulin 3.7, Albumin/Globulin Ratio 0.7 L Assessment & Plan Assessment/Plan (1) Acute calculous cholecystitis: PLAN: The patient is currently soft and nontender. I reviewed both of his CT scans as he had a arterial and venous phase scan and I reviewed his CT scan from October 02 before surgery. The patient appears to have a wedge-shaped defect in the left superior kidney that was not there on the last CAT scan from October 02. I am consulting medicine and nephrology to assist with a decision on if we should anticoagulate him or not. I am checking an EKG as well as blood cultures. I did discuss with Dr. Garay, who will be back tomorrow. Rhys Christie MD Pager: [facility] [address] [place] [address], [address] [place] [address] Office:
--- NOTE | 2023-10-09 11:22 | PCM.CONS.GEN ---
Assessment & Plan Assessment/Plan (1) Renal infarction: PLAN: Plan Hospitalist team was consulted for left renal artery superior pole reported in CT scan abdomen with contrast 1. Left renal artery superior pole contrast: Patient is admitted in PCU. Telemetry monitoring. Epigastric/abdominal pain has resolved. No leukocytosis. Kidney function in normal limit. Patient had CT abdomen pelvis with contrast on 09/23/2023 which did not show any renal artery infarct, images individually reviewed with tow motor driver. Subsequent CT abdomen on 10/08/2023 shows left renal artery infarct. Renal artery duplex ordered. Lockstitch Front Maker is consulted. He will do hypercoagulable workup. 2. Mild hypokalemia: Potassium replacement ordered. Serum magnesium phosphorus ordered. 3. Dyslipidemia, possible GERD: Continue home medications. 4. Recent episode of acute cholecystitis with cholelithiasis without obstruction: Postop care as per surgery. HPI Consult Data Date of Consult: 10/09/23 HPI Narrative Reason for Consultation: Abnormal CT abdomen done in [place] ER, concern for left renal arteryinfarct HPI Narrative: CHELLE TORRES, is a 48 M who is admitted to general surgery service for epigastric pain that started yesterday and he went to [place] ER. Patient had CT abdomen done which shows left renal arteries. infarct. Patient was transferred here for management of postop complication as he had lap castillo with aborted intraoperative cholangiogram with hydrops. Patient abdominal pain has resolved. Hospitalist was consulted for abnormal CT abdomen reported as left renal artery superior pole infarct. Patient denies prior history of coronary artery disease, thromboembolic disease, DVT/PE or hypertension. He has history of dyslipidemia. [facility] Medical History High cholesterol Former smoker Migraines Home Medications ?Medication ?Instructions ?Recorded ?Last Taken ?Type citalopram 20 mg tablet 20 mg PO DAILY 10/03/23 10/08/23 History fexofenadine 60 mg-pseudoephedrine 1 tab PO Q12H PRN allergy symptoms 10/03/23 Unknown History ER 120 mg tablet,ext.release,12 hr (Kamala-D 12 Hour) hydrocortisone 2.5 % topical cream 1 applic [place] BID HEMORRHOIDS 10/03/23 Unknown History with perineal applicator (Procto-Med ) pantoprazole 20 mg tablet,delayed 20 mg PO BID #28 tabs 10/03/23 10/08/23 Rx release (Protonix) famotidine 20 mg tablet (Acid 20 mg PO DAILY 10/05/23 10/08/23 History Controller) loratadine 10 mg tablet (Allergy 10 mg PO DAILY PRN allergy symptoms 10/05/23 Unknown History Relief (loratadine)) sumatriptan succinate 50 mg tablet 50 mg PO DAILY PRN migraine 10/05/23 Unknown History headache acetaminophen 500 mg capsule 500 mg PO Q6H PRN pain 10/09/23 10/08/23 History ibuprofen 200 mg tablet (Advil) 200 mg PO Q6H 10/09/23 10/08/23 History Allergy/AdvReac Type Severity Reaction Status Date / Time Penicillins AdvReac Intermediate Vomiting Verified 10/05/23 05:55 Surgical History History of cholecystectomy Social History Smoking Status: Former smoker ROS ROS Narrative Constitutional: Reports fatigue and weakness. No fever. HEENT: Reports systems reviewed and no addt'l complaints, except as documented Respiratory/Chest: No acute shortness of breath or respiratory distress or wheezing. CVS: No chest pain or shortness of breath. Gastrointestinal: Epigastric pain yesterday. Recent lap castillo as described in HPI. Denies coffee ground emesis, hematemesis or vomiting Genitourinary: Denies burning urination or new urinary tract symptoms. No hematuria Musculoskeletal: Denies acute joint pain or limited range of motion. No acute injury Neurologic: Denies seizure-like symptoms. skin: No ulcer. No rash Endocrinology: Reports systems reviewed and no addt'l complaints, except as documented Hematologic/Lymphatic: Reports systems reviewed and no addt'l complaints, except as documented Rest 14 ROS are negative except as mentioned in HPI Physical Exam Narrative General: Alert, Oriented x3, Cooperative HEENT: Atraumatic, PERRLA, EOMI, Normocephalic Oral: No Gingival or Mucosal Lesions/ Ulcerations Neck: Supple, No JVD, Negative Carotid Bruits Chest wall/Lungs: Air entry diminished in bilateral lung bases. No crepitation/rhonchi Cardiovascular: Regular rate, Regular Rhythm, Normal S1, Normal S2, No M/G/R Abdomen: Mild postop tenderness on right upper quadrant. Bowel Sounds Present, Soft, Non-Distended : No dysuria. No renal angle tenderness. No suprapubic tenderness. Extremities: No edema, Capillary Refill Less than 3 Seconds Skin: No rashes, No breakdown Musculoskeletal: No Tenderness to Palpation of Joints or Extremities Neurological: Cranial nerves II-XII grossly intact, DTR 2+/4. No acute focal neurological deficit. Psych/Mental Status: Normal Affect, Appropriate. Lab / Micro Data 10/09/23 06:58 10/09/23 06:58 Labs: Laboratory Results - last 24 hr 10/09/23 06:58: WBC 8.3, RBC 3.32 L, Hgb 10.7 L, Hct 31.0 L, MCV 93.4, MCH 32.2 H, MCHC 34.5, RDW Std Deviation 44.2 H, RDW Coeff of Trevon 12.8, Plt Count 360, MPV 8.9, Immature Gran % (Auto) 0.600, Neut % (Auto) 70.1 H, Lymph % (Auto) 16.3 L, [place] % (Auto) 9.0, Eos % (Auto) 3.5, Baso % (Auto) 0.5, Absolute Neuts (auto) 5.8, Absolute Lymphs (auto) 1.35, Nucleated RBC % 0, Sodium 139, Potassium 3.2 L, Chloride 106, Carbon Dioxide 27.0, Anion Gap 6, BUN 4 L, Creatinine 0.78, Estim Creat Clear Calc 133.17, Est GFR (MDRD) Af Amer 139, Est GFR (MDRD) Non-Af 115, BUN/Creatinine Ratio 5.2 L, Glucose 93, Calcium 9.0, Total Bilirubin 0.70, AST 30, ALT 52, Alkaline Phosphatase 53, Total Protein 6.4, Albumin 2.7 L, Globulin 3.7, Albumin/Globulin Ratio 0.7 L Charges/Coding Visit Charges Office Visits / Consults: [id number] IP Consult L4
--- NOTE | 2023-10-09 11:42 | PCM.CONS.R ---
Assessment & Plan Assessment/Plan (1) Renal infarction: PLAN: Reviewed CT images. CT abdomen from 10/03/2023 here, about 6 days ago did not show any infarct. Reviewed images from outside hospital overnight, he does have a very clearly delineated left upper pole kidney infarct. I suspect the second episode of acute abdomen could be related to infarct. Detailed history reviewed. Remote history of smoking, smoked for about 20 some years, quit about 1 and half year ago. He does have dyslipidemia, did not tolerate statins, willing to reconsider other medications but currently not on any medications. No history of diabetes or hypertension. No family history of hypercoagulability. No evidence of any form of malignancy at this point. No cardiac arrhythmias. No cardiac issues, neurovascular issues in the past. Data and isolated renal infarcts in the absence of other comorbidities is somewhat limited. First we would like to look for a source of embolus. Discussed with hospitalist. He will be placed on radiation monitor for 24 hours, we will get echocardiogram, renal Dopplers. We will send a screen for hypercoagulability workup, protein C and S functional testing, Antithrombin III assay, antibeta-2 glycoprotein assay, lupus anticoagulant. If a source of thrombus is identified in this workup he will need to go on anticoagulation probably lifelong. If no source of hypercoagulability/thrombus is identified, risk-benefit ratio probably does not favor anticoagulation given his young age and the need for lifelong anticoagulation. This plan was discussed with the patient. Discussed with hospitalist. Telemetry today, echocardiogram renal Doppler today. Hypercoagulability workup will probably take some time to come back. He can potentially be discharged and follow-up as outpatient. We will hold off on starting anticoagulation right away. HPI Consult Data Date of Consult: 10/09/23 HPI Narrative Reason for Consultation: renal infarct HPI Narrative: CHELLE TORRES, is a 48 M who presents to the hospital with abdominal pain. This is his third hospital visit in less than a week. Late last week he had abdominal pain consistent with cholecystitis, s/p cholecystectomy. He was discharged home. He came back with sudden onset abdominal pain. He describes this mostly as epigastric but radiating to the whole abdomen. Sudden onset. No gross hematuria. Pain is significantly better today compared to yesterday. CT abdomen images from outside hospital showed left upper pole renal infarct. [facility] Medical History High cholesterol Former smoker Migraines Home Medications ?Medication ?Instructions ?Recorded ?Last Taken ?Type citalopram 20 mg tablet 20 mg PO DAILY 10/03/23 10/08/23 History fexofenadine 60 mg-pseudoephedrine 1 tab PO Q12H PRN allergy symptoms 10/03/23 Unknown History ER 120 mg tablet,ext.release,12 hr (Kamala-D 12 Hour) hydrocortisone 2.5 % topical cream 1 applic VA BID HEMORRHOIDS 10/03/23 Unknown History with perineal applicator (Procto-Med HC) pantoprazole 20 mg tablet,delayed 20 mg PO BID #28 tabs 10/03/23 10/08/23 Rx release (Protonix) famotidine 20 mg tablet (Acid 20 mg PO DAILY 10/05/23 10/08/23 History Controller) loratadine 10 mg tablet (Allergy 10 mg PO DAILY PRN allergy symptoms 10/05/23 Unknown History Relief (loratadine)) sumatriptan succinate 50 mg tablet 50 mg PO DAILY PRN migraine 10/05/23 Unknown History headache acetaminophen 500 mg capsule 500 mg PO Q6H PRN pain 10/09/23 10/08/23 History ibuprofen 200 mg tablet (Advil) 200 mg PO Q6H 10/09/23 10/08/23 History Allergy/AdvReac Type Severity Reaction Status Date / Time Penicillins AdvReac Intermediate Vomiting Verified 10/05/23 05:55 Surgical History History of cholecystectomy Social History Smoking Status: Former smoker ROS ROS Narrative Negative except above Physical Exam Narrative Alert awake oriented x 3 no obvious distress no pallor no icterus no JVD s1s2 no murmurs lungs clear abdomen soft no organomegaly no edema no cyanosis Lab / Micro Data 10/09/23 06:58 10/09/23 06:58 Labs: Laboratory Results - last 24 hr 10/09/23 06:58: WBC 8.3, RBC 3.32 L, Hgb 10.7 L, Hct 31.0 L, MCV 93.4, MCH 32.2 H, MCHC 34.5, RDW Std Deviation 44.2 H, RDW Coeff of Trevon 12.8, Plt Count 360, MPV 8.9, Immature Gran % (Auto) 0.600, Neut % (Auto) 70.1 H, Lymph % (Auto) 16.3 L, [place] % (Auto) 9.0, Eos % (Auto) 3.5, Baso % (Auto) 0.5, Absolute Neuts (auto) 5.8, Absolute Lymphs (auto) 1.35, Nucleated RBC % 0, Sodium 139, Potassium 3.2 L, Chloride 106, Carbon Dioxide 27.0, Anion Gap 6, BUN 4 L, Creatinine 0.78, Estim Creat Clear Calc 133.17, Est GFR (MDRD) Af Amer 139, Est GFR (MDRD) Non-Af 115, BUN/Creatinine Ratio 5.2 L, Glucose 93, Calcium 9.0, Total Bilirubin 0.70, AST 30, ALT 52, Alkaline Phosphatase 53, Total Protein 6.4, Albumin 2.7 L, Globulin 3.7, Albumin/Globulin Ratio 0.7 L
--- NOTE | 2023-10-09 13:05 | CASEMGMT ---
Social Work As per admitting RN, pt does not have LW/POA documents, declined further information. GEOVANI Barraza
[2023-10-09 17:48] LABS: Troponin-I HS 17 pg/mL (3.0-78.0)
[2023-10-09] MEDS: Calcium Carbonate 500 MG Tablet 1000 MG PO (17:56)
--- NOTE | 2023-10-09 18:22 | CT_ITS ---
We are attempting to reach an attending provider to discuss findings. An addendum with communication details will be sent when the communication is complete. STUDY: CTA CHEST AND CTA ABDOMEN/PELVIS WITH CONTRAST REASON FOR EXAM: Male, 48 years old. R/o dissection RADIATION DOSAGE (If Supplied By Facility): CTDIvol = ( 13.61 ) mGy, DLP = ( 1148.20 ) mGycm TECHNIQUE: The examination was performed with the intravenous administration of IV 100mL [id number]-370. Post-processing of the angiographic images was performed, with multiplanar reformation and 3D reconstruction. Individualized dose optimization techniques were used for this CT. COMPARISON: October 03, 2023 CT abdomen and pelvis. FINDINGS: CTA Chest Normal enhancement of the main pulmonary artery and right and left pulmonary arteries. Normal enhancement of the bilateral peripheral pulmonary arteries. There is no demonstrated pulmonary embolism. Normal thoracic aorta and visualized great vessels. There is no demonstrated aortic dissection. Normal heart and pericardium. Normal mediastinum. Normal hilar regions. Normal visualized trachea and bronchi. The lungs are well expanded. There is lower lobe atelectasis. There are small pleural effusions. Normal chest wall structures. Normal osseous structures. Normal visualized upper abdomen. CT Abdomen T Pelvis There is lower lung atelectasis. There are small pleural effusions. The visualized portions of the heart are within normal limits. There is 1.2 cm enhancing mass in the right lobe of the liver. There are surgical clips in the gallbladder fossa consistent with a prior cholecystectomy. There is mild fluid in the surgical bed. Normal spleen. Normal pancreas. Normal bilateral adrenal glands. Normal right kidney. There is focal decreased enhancement and infarct at the upper pole of the left kidney. Normal visualized stomach. Normal small intestine. Normal colon. There is non-visualization of the appendix. Normal abdominal aorta. 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 Normal inferior vena cava. Normal retroperitoneum. Normal urinary bladder. There is small amount of free fluid in the pelvis. There is postoperative change of the abdominal wall. Normal osseous structures. CT/CTA Chst, Abd, Pel W and/or WO IMPRESSION: Infarct at the upper pole of the left kidney. Dissection of the celiac artery, slightly more prominent than on the recent exam. Postoperative change with recent cholecystectomy. Lower lung atelectasis. Small pleural effusions. Electronically Signed: Irwin Delgado MD at 20:30 EDT ,
[2023-10-09] MEDS: 0.9% Normal Saline (1000mL) 1,000 ML 75 ML IV (20:18)
[2023-10-09] MEDS: Esmolol 2,500 MG/250 ML IV.SOLN. 26.8 MG CONT INF (21:55)
[2023-10-09] MEDS: Pantoprazole Sodium 20 MG Tablet PO (21:58)
--- NOTE | 2023-10-09 22:08 | ED.RN ---
Patient wanted to note that his uvula has been hanging lower since his lap/coli and is making it more uncomfortable when he sleeps and swallows water.
--- NOTE | 2023-10-09 22:42 | PN.HOSP_ITS ---
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 Patient continues to have epigastric pain along with blood pressure variability with readings in both arms and legs and continued elevated blood pressures. Spoke with Dr. Emery over the phone and he recommended transferring patient to a tertiary center for further management. Also recommended starting patient on an IV drip for better control of heart rate and blood pressure. Transferred patient up to the ICU here and started him on an esmolol drip. I saw patient at the bedside shortly after transfer up to the ICU. He was mildly anxious appearing due to the situation but was otherwise doing okay. He continued to have mild epigastric pain but stated it was manageable. Denied any other symptoms currently. He requested transfer to [facility] in [place] as he has family in that area. Called the [facility] transfer center and he was accepted there, and they were able to get a bed quickly for him. Nursing staff arranging transport now.
--- NOTE | 2023-10-09 22:45 | NURSING ---
Sharona, from transfer center of [facility], called with the accepting physician and a room number. Report was given and all questions were answered.
[2023-10-10] VITALS (10 sets, daily range): BP systolic 118–134; BP diastolic 77–84; PULSE 77–89; RESP 15–18; O2SAT 95–98; BMI 28.7
[2023-10-10] MEDS: Calcium Carbonate 500 MG Tablet 1000 MG PO (00:05)
[2023-10-10] MEDS: Esmolol 2,500 MG/250 ML IV.SOLN. 107.3 MG CONT INF ×5 (00:37→07:23)
[2023-10-10 04:10] LABS: Absolute Lymphocyte Count 1.26 X10^3/uL (0.83-4.51); Absolute Neutrophil Count 6.4 X10^3/uL (2.0-7.7); Basophil# 0.07 X10^3/uL; Basophil% 0.8 % (0-1); Eosinophil# 0.31 X10^3/uL; Eosinophils% 3.4 % (0-5); Hemoglobin 10.8 g/dL (13.0-16.5); Lymphocyte # 1.26 X10^3/ul (0.83-4.51); Lymphocyte % 13.9 % (19-41); Mean Corp Hgb Conc 34.8 g/dL (32-36); Mean Corpuscular Hgb 32.4 pg (27.0-32.0); Mean Corpuscular Volume 93.1 fL (80-94); Mean Platelet Vol. 8.8 fl (6.2-12.0); Monocyte# 0.97 X10^3/uL; Monocyte% 10.7 % (0-10); NRBC Flagged by Analyzer 0 % (0-5); Neutrophil # 6.42 X10^3/uL (2.7-7.7); Neutrophil % 70.5 % (47-70); Platelet Count 431 K/mm3 (150-450); RBC Distribution Width SD 44.3 fl (35.1-43.9); Red Blood Count 3.33 M/mm3 (4.6-6.2); White Blood Count 9.1 K/mm3 (4.4-11.0)
[2023-10-10 04:29] LABS: ALB/GLOB Ratio 0.7 RATIO (0.9-2.4); AST(SGOT) 27 U/L (15-37); Alanine Aminotransfer ALT/SGPT 48 U/L (16-61); Albumin, Serum 2.7 g/dL (3.2-5.0); Alkaline Phosphatase 51 U/L (45-117); Anion Gap 8 (5-15); BUN 5 mg/dL (7-18); BUN/Creat Ratio 7.3 RATIO (10-20); Calcium,Total 8.8 mg/dL (8.5-10.1); Chloride 105 mmol/L (98-107); Creatinine, Serum 0.69 mg/dL (0.70-1.30); EST Glomerular Filtration Rate 131 mL/min (>60); Est Glom Filt Rate - Afr Amer 159 mL/min (>60); Estimated Creatinine Clearance 150.54 ml/min; Globulin 3.7 g/dL (2.2-4.2); Glucose 103 mg/dL (74-106); Magnesium 1.8 mg/dL (1.6-2.6); Phosphorus 3.3 mg/dL (2.5-4.9); Potassium 3.8 mmol/L (3.5-5.1); Protein, Total 6.4 g/dL (6.4-8.2); Sodium Level 137 mmol/L (136-145)
--- NOTE | 2023-10-10 07:35 | PCM.PN.SRG ---
Subjective Subjective Patient seen and examined during AM rounds. Is found resting comfortably in bed. He estimates his discomfort is less than a 2 out of 10. He denies any other complaints as he awaits transfer to [facility]. Cording to nursing this is due to happen imminently Objective Data Objective Data Vital Signs: Vital Signs Temp Pulse Resp BP Pulse Ox O2 Del Method 98.4 F 81 15 126/81 H 95 Room Air 10/09/23 21:08 10/10/23 07:00 10/10/23 07:00 10/10/23 07:00 10/10/23 07:00 10/10/23 03:00 Oxygen Delivery Method Room Air Weight: 200 lb 2.876 oz Body Mass Index (BMI) 28.7 Intake & Output: Intake and Output for Last 24 Hours 10/08/23 10/09/23 10/10/23 23:59 23:59 23:59 Intake Total 1616.42 / 1643.25 816.92 / 816.92 Output Total 300 / 300 Balance 1616.42 / 1643.25 516.92 / 516.92 Lab / Micro Data 10/10/23 04:00 10/10/23 04:00 Labs: Laboratory Results - last 24 hr 10/09/23 17:15: Troponin I High Sens 17 10/10/23 04:00: WBC 9.1, RBC 3.33 L, Hgb 10.8 L, Hct 31.0 L, MCV 93.1, MCH 32.4 H, MCHC 34.8, RDW Std Deviation 44.3 H, RDW Coeff of Trevon 13.0, Plt Count 431, MPV 8.8, Immature Gran % (Auto) 0.700, Neut % (Auto) 70.5 H, Lymph % (Auto) 13.9 L, [place] % (Auto) 10.7 H, Eos % (Auto) 3.4, Baso % (Auto) 0.8, Absolute Neuts (auto) 6.4, Absolute Lymphs (auto) 1.26, Nucleated RBC % 0, Sodium 137, Potassium 3.8, Chloride 105, Carbon Dioxide 24.0, Anion Gap 8, BUN 5 L, Creatinine 0.69 L, Estim Creat Clear Calc 150.54, Est GFR (MDRD) Af Amer 159, Est GFR (MDRD) Non-Af 131, BUN/Creatinine Ratio 7.3 L, Glucose 103, Calcium 8.8, Phosphorus 3.3, Magnesium 1.8, Total Bilirubin 0.50, AST 27, ALT 48, Alkaline Phosphatase 51, Total Protein 6.4, Albumin 2.7 L, Globulin 3.7, Albumin/Globulin Ratio 0.7 L Radiography Diagnostic Testing: Radiology Impression Echocardiogram 10/09/23 10:39 Interpretation Summary Normal LV size. Left ventricular systolic function is normal. The left ventricular ejection fraction is 60 %. Mild concentric left ventricular hypertrophy. Structurally normal valves. Ordering Physician: Ismael Flynn Performed By: Tere Meraz RDCS and Student Chest/Abdomen/Pelvis CTA 10/09/23 18:22 IMPRESSION: Infarct at the upper pole of the left kidney. Dissection of the celiac artery, slightly more prominent than on the recent exam. Postoperative change with recent cholecystectomy. Lower lung atelectasis. Small pleural effusions. Electronically Signed: Irwin Delgado MD at 20:30 EDT , ADDENDUM: 10/09/232038 IMPRESSION: Infarct at the upper pole of the left kidney. Dissection of the celiac artery, slightly more prominent than on the recent exam. Postoperative change with recent cholecystectomy. Lower lung atelectasis. Small pleural effusions. N.B. : The above Results were Read Back by Irwin Delgado MD to Simeon Hernandez RN, and understanding confirmed on 10/09/2023 20:32:43 (ET). Electronically Signed: Irwin Delgado MD at 20:30 EDT , Physical Exam Const oriented x3 and no apparent distress Resp normal respiratory effort GI GI Narrative: Operative dressings remain intact once these are removed patient's Steri-Strips remain in place her wounds and there is no surrounding erythema or drainage from these wounds. Patient's abdomen is nondistended, soft, nontender to palpation x 4 quadrants Assessment & Plan Assessment/Plan (1) Renal infarction: PLAN: Patient is hospital day 2 for wedge-shaped infarct of the left superior pole of the kidney. Creatinine remained stable. Nephrology following. 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 Patient initially severely hypertensive was moved to the ICU for esmolol drip. Patiently now normotensive on a drip but states that this has affected how he feels. He does deny any abdominal pain at this time and his exam is normal. He is status post laparoscopic cholecystectomy and his incision sites are appropriate beneath the dressings which were removed today. Will have him follow-up as an outpatient once he is discharged for management of his renal infarction and celiac dissection. (2) Celiac artery dissection: PLAN: Pending imminent transfer to outside hospital for management of celiac artery dissection. I reviewed patient's CTA images myself and did not see evidence of malperfusion. Further, patient's laboratories remain within normal limits. However, given radiology reports for probable progression of the dissection and vascular surgery recommending transfer to a tertiary facility for management this has been initiated. I am unable to clinically connect this finding to patient's recent surgery despite the temporal proximity. I reviewed the literature and the reports of isolated celiac artery dissection leading to acute cholecystitis, however, this does not fit well with this patient's presentation given the findings of acute on chronic calculus cholecystitis (confirmed by postoperative path). Charges/Coding Visit Charges Inpatient E&M: 98637 Subs Hosp L2
--- NOTE | 2023-10-10 08:00 | NURSING ---
Patient left unit with [facility] at 0755 to be transported to [place]. Report called to hospital by previous nurse. This nurse gave verbal report to EMS.
--- NOTE | 2023-10-10 08:23 | PCM.PN.HOSP ---
Reason for Visit Reason for Visit: Diagnoses Calculus of gallbladder with acute cholecystitis without obstruction (10/09/23) Ischemia and infarction of kidney (10/09/23) Objective Data Objective Data Vital Signs: Vital Signs Temp Pulse Resp BP Pulse Ox O2 Del Method 98.4 F 81 15 126/81 H 95 Room Air 10/09/23 21:08 10/10/23 07:00 10/10/23 07:00 10/10/23 07:00 10/10/23 07:00 10/10/23 03:00 Oxygen Delivery Method Room Air Weight: 200 lb 2.876 oz Body Mass Index (BMI) 28.7 Intake & Output: Intake and Output for Last 24 Hours 10/08/23 10/09/23 10/10/23 23:59 23:59 23:59 Intake Total 1616.42 / 1643.25 816.92 / 816.92 Output Total 300 / 300 Balance 1616.42 / 1643.25 516.92 / 516.92 Lab / Micro Data 10/10/23 04:00 10/10/23 04:00 Labs: Laboratory Results - last 24 hr 10/09/23 17:15: Troponin I High Sens 17 10/10/23 04:00: WBC 9.1, RBC 3.33 L, Hgb 10.8 L, Hct 31.0 L, MCV 93.1, MCH 32.4 H, MCHC 34.8, RDW Std Deviation 44.3 H, RDW Coeff of Trevon 13.0, Plt Count 431, MPV 8.8, Immature Gran % (Auto) 0.700, Neut % (Auto) 70.5 H, Lymph % (Auto) 13.9 L, Sac % (Auto) 10.7 H, Eos % (Auto) 3.4, Baso % (Auto) 0.8, Absolute Neuts (auto) 6.4, Absolute Lymphs (auto) 1.26, Nucleated RBC % 0, Sodium 137, Potassium 3.8, Chloride 105, Carbon Dioxide 24.0, Anion Gap 8, BUN 5 L, Creatinine 0.69 L, Estim Creat Clear Calc 150.54, Est GFR (MDRD) Af Amer 159, Est GFR (MDRD) Non-Af 131, BUN/Creatinine Ratio 7.3 L, Glucose 103, Calcium 8.8, Phosphorus 3.3, Magnesium 1.8, Total Bilirubin 0.50, AST 27, ALT 48, Alkaline Phosphatase 51, Total Protein 6.4, Albumin 2.7 L, Globulin 3.7, Albumin/Globulin Ratio 0.7 L Radiography Diagnostic Testing: Radiology Impression Echocardiogram 10/09/23 10:39 Interpretation Summary Normal LV size. Left ventricular systolic function is normal. The left ventricular ejection fraction is 60 %. Mild concentric left ventricular hypertrophy. Structurally normal valves. Ordering Physician: Ismael Flynn Performed By: Tere Meraz RDCS and Student Chest/Abdomen/Pelvis CTA 10/09/23 18:22 IMPRESSION: Infarct at the upper pole of the left kidney. Dissection of the celiac artery, slightly more prominent than on the recent exam. Postoperative change with recent cholecystectomy. Lower lung atelectasis. Small pleural effusions. Electronically Signed: Irwin Delgado MD at 20:30 EDT , ADDENDUM: 10/09/232038 IMPRESSION: Infarct at the upper pole of the left kidney. Dissection of the celiac artery, slightly more prominent than on the recent exam. Postoperative change with recent cholecystectomy. Lower lung atelectasis. Small pleural effusions. N.B. : The above Results were Read Back by Irwin Delgado MD to Simeon Hernandez RN, and understanding confirmed on 10/09/2023 20:32:43 (ET). Electronically Signed: Irwin Delgado MD at 20:30 EDT , Physical Exam Narrative Yesterday afternoon reviewed events noted. No fever or chills. Patient had abdominal pain on 4:30 PM mainly epigastric pain with radiation to the neck. Blood pressure upon lower extremities were taken and there was difference in blood pressure more than [address] angiogram of chest abdomen and pelvis were done. Chest CT came positive for focal dissection of palpable splenic artery 1.4 cm dilatation. Patient was immediately transferred to ICU and vascular surgery was consulted. Started on Esmolol drip was started on BP was around 120s on the maximum drip of esmolol. Transfer call was made by nighttime hospitalist colleague and patient accepted in [facility]. Patient left around 7:30 PM. Patient also complained of right occipital as below external occipital prominence. Physical exam General: Alert, Oriented x3, Cooperative HEENT: Atraumatic, PERRLA, EOMI, Normocephalic Oral: No Gingival or Mucosal Lesions/ Ulcerations Neck: Supple, No JVD, Negative Carotid Bruits Chest wall/Lungs: Air entry diminished in bilateral lung bases. No crepitation/rhonchi Cardiovascular: Regular rate, Regular Rhythm, Normal S1, Normal S2, No M/G/R. No radial femoral delay. Abdomen: Mild postop tenderness on right upper quadrant. Bowel Sounds Present, Soft, Non-Distended : No dysuria. No renal angle tenderness. No suprapubic tenderness. Extremities: No edema, Capillary Refill Less than 3 Seconds Skin: No rashes, No breakdown Musculoskeletal: No Tenderness to Palpation of Joints or Extremities Neurological: Cranial nerves II-XII grossly intact, DTR 2+/4. No acute focal neurological deficit. Psych/Mental Status: Normal Affect, Appropriate. Assessment & Plan Assessment/Plan (1) Renal infarction: PLAN: Plan Hospitalist team was consulted for left renal artery superior pole reported in CT scan abdomen with contrast 1. Left renal artery superior pole contrast: Patient is admitted in PCU. Telemetry monitoring. Epigastric/abdominal pain has resolved. No leukocytosis. Kidney function in normal limit. Patient had CT abdomen pelvis with contrast on 09/23/2023 which did not show any renal artery infarct, images individually reviewed with hoisting engineer. Subsequent CT abdomen on 10/08/2023 shows left renal artery infarct. Renal artery duplex ordered. Steamer Tender is consulted. hypercoagulable workup. 10/09: On 10/08: Patient had epigastric chest pain with radiation to neck. Blood pressure in right upper arm 152/89, left upper arm 130/84, left leg 147/120 pulses were all equal heart rate 89 as per the nursing staff. CTA chest and abdomen pelvis immediately ordered. Which showed dissection of the proximal celiac artery CTA chest and abdomen was done.With 1.4 cm dilatation. Normal abdominal aorta. Normal IVC. Normal retroperitoneum. Besides cytologies are reported 1.2 cm enhancing mass/contrast-enhancement in the right liver which I could not clearly discern but patient will need dedicated triple phase CT scan or MRI to further evaluate. Vascular surgery was consulted and patient was started on esmolol drip and transfer to tertiary care. Blood pressure is controlled. Transfer call was made and patient accepted [facility] for further management. Patient transferred to [place] around 7:30 AM. Redemonstration of focal decreased enhancement in infarcted upper pole of left kidney. Echo shows LV systolic function normal EF 60%. 2. Mild hypokalemia: Potassium replacement ordered. Serum magnesium phosphorus ordered. 3. Dyslipidemia, possible GERD: Continue home medications. 4. Recent episode of acute cholecystitis with cholelithiasis without obstruction: Postop care as per surgery. Clinical Impression(s) from Imaging Studies Echocardiogram 10/09/23 10:39 Interpretation Summary Normal LV size. Left ventricular systolic function is normal. The left ventricular ejection fraction is 60 %. Mild concentric left ventricular hypertrophy. Structurally normal valves. Chest/Abdomen/Pelvis CTA 10/09/23 18:22 IMPRESSION: Infarct at the upper pole of the left kidney. Dissection of the celiac artery, slightly more prominent than on the recent exam. Postoperative change with recent cholecystectomy. Lower lung atelectasis. Small pleural effusions. Charges/Coding Addendum Addendum: Total time of the visit including total time spent in counseling or coordination of care, (more than 50% of the total time, spent in obtaining medical information from nurses and other ancillary care providers,explaining to the patient about labs, imaging, diagnosis and management of active complex medical conditions), management of celiac artery dissection, left upper pole renal infarct, review of labs and imaging is 60 minutes. Visit Charges Inpatient E&M: 72199 [facility] Hosp L3
--- NOTE | 2023-10-10 08:27 | NURSING ---
[facility] IV pumps not compatible with our tubing and our bag of esmolol would not properly fit on their tubing, therefore the two [facility] personnel, Yamilex Valle and Livia Wyatt on Medic 11 took [facility] IV pump [id number] to transport this patient to [facility] and will return pump on 10/10/23 by 1600
--- NOTE | 2023-10-10 08:38 | CASEMGMT ---
Insurance review for hospitals In-network with?[facility] [place] insurance if transfer is recommended is as follows: [facility], [place], [facility], [place], [facility], [facility], [facility], [facility], [place], [facility]), and . Marilou Angeles, Discharge Planning Asst.
[2023-10-11 15:09] LABS: Beta-2-Glycoprotein I IgA <9 (0-25); Beta-2-Glycoprotein I IgG <9 (0-20); Beta-2-Glycoprotein I IgM <9 (0-32)
[2023-10-12 00:07] LABS: Anti-Thrombin 3 AG, Immunol 86 % (72-124); Antithrombin 3 Function 97 % (75-135); Protein C, Functional 98 % (73-180)
[2023-10-12 03:07] LABS: Protein S, Funtional 98 % (63-140)
[2023-10-12 16:10] LABS: Dilute Prothrombin Time (dPT) 34.9 sec (0.0-47.6); Dilute Russell Viper Venom 43.9 sec (0.0-47.0); Hexagonal Phase Phospholipid 2 5 sec (0-11); Interpretation Comment: (.); PTT-LA 46.8 sec (0.0-43.5); PTT-LA Mix 46.8 sec (0.0-40.5); Thrombin Time 14.3 sec (0.0-23.0); dPT Confirm Ratio 1.04 Ratio (0.00-1.34)
== END 2023-10-10 08:15 | disposition other institution (70) | DRG 919 ==
LOC: PCU 12:19 → ICU 10-10 08:10
PROVIDERS: Internal Medicine Nephrology; Admitting Provider Surgery; PCP Family Medicine; Visit Provider Surgery
DX: T81.89XA Other complications of procedures, not elsewhere classified, initial encounter (principal); I77.79 Dissection of other specified artery; N28.0 Ischemia and infarction of kidney; E78.00 Pure hypercholesterolemia, unspecified; K21.9 Gastro-esophageal reflux disease without esophagitis; E87.6 Hypokalemia; Z79.899 Other long term (current) drug therapy; Z87.891 Personal history of nicotine dependence; Z90.49 Acquired absence of other specified parts of digestive tract; Y83.6 Removal of other organ (partial) (total) as the cause of abnormal reaction of the patient, or of later complication, without mention of misadventure at the time of the procedure; R16.0 Hepatomegaly, not elsewhere classified
CPT/HCPCS: 36415; 71275; 74174; 80053; 81240; 81241; 83735; 84100; 84484; 85025; 85300; 85301; 85303; 85306; 86146; 87040; 93005; 93306; J7030; J7120; Q9967; A4216